=== PATIENT | female | born 1950 | race Caucasian/White ===

== ENCOUNTER → 2019-12-11 10:08 | Outpatient (BNVA) | payer MEDICARE, SELFPAY | PROVIDERS: Family Provider Physician Assistant Medical; PCP Physician Assistant Medical; Referring Provider Physician Assistant Medical; Visit Provider Podiatrist Foot & Ankle Surgery | DX: M21.611 Bunion of right foot (principal); M20.11 Hallux valgus (acquired), right foot; M77.31 Calcaneal spur, right foot | CPT/HCPCS: 73630 ==

== ENCOUNTER → 2023-02-07 10:17 | Outpatient (BNVA) | payer MEDICARE, SELFPAY | PROVIDERS: Family Provider Physician Assistant Medical; PCP Physician Assistant Medical; Referring Provider Nurse Practitioner Family; Visit Provider Orthopaedic Surgery | DX: M43.16 Spondylolisthesis, lumbar region (principal); M48.061 Spinal stenosis, lumbar region without neurogenic claudication; M41.9 Scoliosis, unspecified; Z98.890 Other specified postprocedural states | CPT/HCPCS: 72110; 99204 ==

== ENCOUNTER 2023-02-28 10:29 | Outpatient (CLI) | payer MEDICARE, SELFPAY ==
--- NOTE | 2023-02-28 11:00 | MR_ITS ---
WS: [id number] MRI LUMBAR SPINE NONCONTRAST HISTORY: low back pain with radiculopathy, hx of lumbar surgery COMPARISON: None available. TECHNIQUE: Sagittal and axial multisequence imaging is submitted. Increase in the lumbar lordosis. Mild LEFT curvature. L4 anterolisthesis by 3 mm. 2 mm retrolisthesis T12 and L1. Conus terminates normally at L1. T12-L1: Moderate annular disc bulging with mild encroachment upon the subarticular recesses. There is an additional RIGHT paracentral extruded disc component. Mild encroachment into the subarticular rec ess. L1-L2: Moderate annular disc bulging with ligamentum flavum and facet arthritis. Small RIGHT foramina l disc protrusion. Mild bilateral subarticular recess encroachment. L2-L3: Mild annular disc bulge with ligamentum flavum and facet arthritis. Mild bilateral subarticula r recess stenosis. L3-L4: Mild annular disc bulge with ligamentum flavum and facet arthritis. Mild effacement of ventral CSF and narrowing of the subarticular recesses. Mild central and subarticular recess stenosis. L4-L5: Marked annular disc bulging with severe ligamentum flavum and facet arthritis. Fluid in the fa cet joints. Effacement of CSF. Severe central and bilateral subarticular recess stenosis with moderat e bilateral foraminal stenosis. L5-S1: Mild facet arthritis. Very minimal encroachment upon the S1 nerve roots. Paravertebral soft tissues are normal. MR/MR lumbar spine wo con* [id number] IMPRESSION: 1. Severe central and bilateral subarticular recess stenosis at L4-5 with mode rate bilateral foraminal stenosis. Stenosis due to combination of L4 anterolist hesis with severe ligamentum flavum and facet arthritis with disc disease. 2. Bilateral subarticular recess stenosis at T12-L1. There is an additional RI GHT paracentral extruded disc at T12-L1 and extending caudad to the disc level. 3. Mild bilateral subarticular recess stenosis with a small RIGHT foraminal di sc protrusion at L1-2. 4. Mild bilateral subarticular recess encroachment at L2-3. 5. Mild central and bilateral subarticular recess stenosis at L3-4.
== END 2023-02-28 10:30 | disposition home or self-care (01) ==
PROVIDERS: PCP Nurse Practitioner Family; Visit Provider Orthopaedic Surgery
DX: M54.16 Radiculopathy, lumbar region (principal); M48.061 Spinal stenosis, lumbar region without neurogenic claudication; M54.50 Low back pain, unspecified; Z09 Encounter for follow-up examination after completed treatment for conditions other than malignant neoplasm; M43.16 Spondylolisthesis, lumbar region
CPT/HCPCS: 72148; 99214

== ENCOUNTER 2023-03-27 08:01 | Outpatient (CLI) | payer MEDICARE, SELFPAY ==
--- NOTE | 2023-03-27 08:45 | USCV_ITS ---
Leesa Suazo Age: 72 Gender: F : 1950 Exam Date: 03/27/2023 08:27 Ordering Phys: Kaleigh Trevino Technologist: Mila Gonzalez Exam Location[place] [facility] [place] Indication: abnormal EKG- pre op BP: 129 / 72 HR: 55 Rhythm: Sinus Technical Quality: Good MEASUREMENTS (Male / Female) Normal Values 2D ECHO LV Diastolic Diameter PLAX 4.5 cm 4.2 - 5.9 / 3.9 - 5.3 cm LV Systolic Diameter PLAX 2.3 cm IVS Diastolic Thickness 1.2 cm 0.6 - 1.0 / 0.6 - 0.9 cm IVS Systolic Thickness 1.3 cm LVPW Diastolic Thickness 0.9 cm 0.6 - 1.0 / 0.6 - 0.9 cm LVPW Systolic Thickness 2.3 cm LVOT Diameter 2.2 cm LV Ejection Fraction 2D Teich 79.9 % LV Ejection Fraction MOD 2C 64.7 % LV Ejection Fraction 2C AL 66.7 % LA Diameter 2.8 cm LA Width 2.9 cm LA Height 3.7 cm RA Width 3.8 cm RA Height 4.4 cm Aorta at Sinotubular Diameter 2.5 cm IVC Diameter 1.9 cm M-MODE Aortic Annulus Diameter 1.8 cm LA Ao Ratio MM 1.0 MV E Point Septal Separation 0.8 cm DOPPLER AV Peak Velocity 97.0 cm/s LVOT Peak Velocity 98.0 cm/s AV Area Cont Eq vti 3.8 cm squared AV Area Cont Eq pk 3.7 cm squared MV Peak Velocity 118.0 cm/s MV Area PHT 3.7 cm squared Mitral E to A Ratio 0.9 MV E' Velocity 92.0 cm/s TR Peak Velocity 101.0 cm/s TR Peak Gradient 4.1 mmHg Right Atrial Pressure 5.0 mmHg Pulmonary Artery Systolic Pressu 9.1 mmHg PV Peak Velocity 68.0 cm/s RV Acceleration Time 0.1 s RV Ejection Time 0.3 s RV AcT/ET 0.3 FINDINGS Left Ventricle Normal left ventricular size, systolic function and wall thickness, with no regional wall motion abnormalities. Left ventricular ejection fraction is estimated at 65 %. Right Ventricle Normal right ventricular size and systolic function. RVSP could not be calculated due to incomplete tricuspid regurgitation velocity profile. Right Atrium Normal right atrial size. Left Atrium Mildly increased left atrial size. Mitral Valve Structurally normal mitral valve. No mitral valve stenosis. Trace mitral valve regurgitation. Aortic Valve Aortic valve not well visualized. No aortic valve stenosis. No aortic valve regurgitation. Tricuspid Valve Structurally normal tricuspid valve. No tricuspid valve stenosis. Trace tricuspid valve regurgitation. Pulmonic Valve Pulmonic valve not well visualized. No pulmonary valve stenosis. No pulmonary valve regurgitation. Pericardium No pericardial effusion. Aorta Normal size aortic root and proximal ascending aorta. IVC Normal IVC dimension with >50% respiratory change of the inferior vena cava. CONCLUSIONS 1. Normal left ventricular size, systolic function and wall thickness, with no regional wall motion abnormalities. Left ventricular ejection fraction is estimated at 65 %. 2. No significant valvular abnormality. 3. No prior similar studies to compare. Rhonda Bush MD (Electronically Signed) Final Date: 02 April 2023 14:01 S
== END 2023-03-27 08:02 | disposition home or self-care (01) ==
PROVIDERS: PCP Nurse Practitioner Family; Visit Provider Nurse Practitioner Family
DX: R94.31 Abnormal electrocardiogram [ECG] [EKG] (principal)
CPT/HCPCS: 93306

== ENCOUNTER 2023-05-17 12:44 | Outpatient (CLI) | payer MEDICARE, SELFPAY ==
--- NOTE | 2023-05-17 13:11 | MM_ITS ---
WS: [id number] BILATERAL 3D TOMOSYNTHESIS DIGITAL SCREENING MAMMOGRAPHY WITH CAD CLINICAL INFORMATION: SCREENING HISTORY: Screening mammogram. No current complaints. COMPARISON: None. TECHNIQUE: Bilateral CC and MLO views. FINDINGS: Scattered fibroglandular densities bilaterally. No suspicious focal mass, asymmetry, calcifications, or architectural distortion. No evidence of malignancy. MM/[place] [id number] IMPRESSION: BI-RADS: 1-Negative FOLLOW UP: 1 Year Follow-up Recommend return to annual screening mammography.
== END 2023-05-17 12:45 | disposition home or self-care (01) ==
LOC: RAD 12:49 → MOBLMAM 13:10
PROVIDERS: PCP Nurse Practitioner Family; Visit Provider Nurse Practitioner Family
DX: Z12.31 Encounter for screening mammogram for malignant neoplasm of breast (principal)
CPT/HCPCS: 77063; 77067

== ENCOUNTER → 2023-06-15 14:20 | Outpatient (BNVA) | payer MEDICARE, SELFPAY | PROVIDERS: PCP Nurse Practitioner Family; Visit Provider Orthopaedic Surgery | DX: M43.16 Spondylolisthesis, lumbar region (principal); Z01.818 Encounter for other preprocedural examination | CPT/HCPCS: 36415; 72100; 80053; 81003; 85025; 99214 ==

== ENCOUNTER → 2023-07-04 10:47 | Outpatient (BNVA) | payer MEDICARE, SELFPAY | PROVIDERS: PCP Nurse Practitioner Family; Visit Provider Orthopaedic Surgery | DX: M43.16 Spondylolisthesis, lumbar region | CPT/HCPCS: 99213 ==

== ENCOUNTER 2023-07-07 13:50 | Inpatient (IN) | payer MEDICARE, SELFPAY ==
[2023-07-06 12:29] VITALS: BMI 32.2
[2023-07-07] VITALS (20 sets, daily range): BP systolic 100–182; BP diastolic 58–74; PULSE 58–87; RESP 14–22; TEMP 36.4–37.2; O2SAT 91–100
--- NOTE | 2023-07-07 | XR_ITS ---
WS: [id number] Exam: XR lumbar spine 2-3V* [id number] Date/Time of Exam: 07/07/2023 12:00 AM Reason For Exam: or pic, l4-5 fusion AP and lateral intraoperative images of the lower lumbar spine were obtained for intraoperative purpo ses.
[2023-07-07] MEDS: methadone 10 mg Tablet PO (06:41)
[2023-07-07] MEDS: sodium chloride 0.9% 1,000 ML 30 ML IV (06:45)
[2023-07-07] MEDS: scopolamine 1.5 Patch 1 PATCH TRANSDERMA (07:13)
[2023-07-07] MEDS: ondansetron 2 mg/ML SDV 2 mL 4 MG IVP ×2 (07:16→15:37)
[2023-07-07] MEDS: diphenhydrAMINE 50 mg/mL SDV 1mL 12.5 MG IVP (07:17)
[2023-07-07] MEDS: vancomycin 1,000 MG in sodium chloride 0.9% 250 ML 250 MG IV ×2 (09:00→17:19)
--- NOTE | 2023-07-07 09:00 | W.PM.OPSUD ---
Surgery/Procedure H&P Update DATE OF PROCEDURE: July 07, 2023 DATE H&P PERFORMED: 07/04/23 H&P UPDATE INFORMATION: I have reviewed H&P completed within last 30 days, I have examined patient prior to procedure and No changes to prior documentation PREOP DIAGNOSIS: Spondylolisthesis L4-5 PLANNED PROCEDURE: Operation Date: 07/07/23 09:55 Proposed Procedures p Posterior Lumbar Interbody Fusion PLIF L4-5(Not Applicable) - Chu Blackwell DO
--- NOTE | 2023-07-07 09:58 | ANES.PREANE2 ---
Pre-Anesthetic Assessment Height/Weight: Height 1.6 m Weight 82.554 kg Temp Pulse Resp BP Pulse Ox O2 Del Method 97.9 F 69 16 182/73 95 Room Air 07/07/23 06:18 07/07/23 06:18 07/07/23 06:41 07/07/23 06:18 07/07/23 06:41 07/07/23 06:18 Preop Diagnosis: Spondylolisthesis L4-5 Operation Date: 07/07/23 09:55 Proposed Procedures p Posterior Lumbar Interbody Fusion PLIF L4-5(Not Applicable) - Chu Blackwell DO Familial anesthetic complications: none Was Beta Shell taken within 24 hours: N/A Was Clonidine taken within 24 hours: N/A Last intake: Intake Last Liquid Date 07/06/23 Last Liquid Time 22:00 Last Solid Date 07/06/23 Last Solid Time 19:30 Social No alcohol and No tobacco Exam alert, oriented x 3, clear to auscultation bilaterally and regular rate & rhythm CV/HEM Hypertension Metabolic Hyperlipidemia, Morbid Obesity and Thyroid Disease [facility] [place]/el Lower Back Pain and Osteoarthritis/DJD Anesthetic Plan ASA status: 3 Anesthesia: General Other: A.line Medications/Allergies Home Medications Medication Instructions Recorded Confirmed Last Taken Type docusate sodium 100 mg capsule 100 mg PO DAILY 12/11/19 07/07/23 06/30/23 History (Colace) lactobacillus combination no.8 3 3,000 mmu cells PO DAILY 12/11/19 07/06/23 Unknown History billion cell capsule (Adult Probiotic) levothyroxine 75 mcg capsule 75 mcg PO DAILY 12/11/19 07/06/23 07/06/23 History lisinopril 20 1 tab PO DAILY 12/11/19 07/06/23 07/06/23 History mg-hydrochlorothiazide 12.5 mg tablet lovastatin 40 mg tablet 40 mg PO DAILY 12/11/19 07/07/23 07/05/23 History vit C,E,zinc,copper-aopeq7z 250 1 cap PO DAILY 12/11/19 07/06/23 07/03/23 History mg-lutein 5 mg-zeaxanthin 1 mg capsule (Ocuvite Adult 50 Plus) Allergies Allergy/AdvReac Type Severity Reaction Status Date / Time cephalexin [From Keflex] Allergy Mild ALGY-Rash Verified 07/07/23 06:17 ciprofloxacin Allergy Mild ALGY-Rash Verified 07/07/23 06:17 Current Medications Generic Name Dose Route Start Last Admin Trade Name Freq PRN Reason Stop Dose Admin Diphenhydramine HCl 12.5 mg 07/07/23 06:03 07/07/23 07:17 Diphenhydramine 50 Mg/Ml Sdv 1ml IVP 12.5 mg ONCE PRN Administration PONV Sodium Chloride 1,000 mls @ 30 mls/hr 07/07/23 06:15 07/07/23 06:45 Sodium Chloride 0.9% IV 07/08/23 06:14 30 mls/hr .Q24H MICKEY Administration Ondansetron HCl 4 mg 07/07/23 06:03 07/07/23 07:16 Ondansetron 2 Mg/Ml Sdv 2 Ml IVP 4 mg ONCE PRN Administration NAUSEA AND VOMITING PFSH Anesthesia Medical History Arthritis Borderline hyperlipidemia Dyspepsia Hypertension Hypokalemia Hypothyroid Family History Other Cancer Hyperlipidemia Hypertension Denies family history of Diabetes CAD (coronary artery disease) Clotting disorder Dementia Psychiatric illness Chronic kidney disease (CKD) Suicide Anesthesia complication Bleeding disorder Family history of premature coronary artery disease Lung disease Stroke Social History Smoking and tobacco status: never smoked Second hand smoke exposure: No Alcohol intake: never Substance/Drug Use: never Lives independently: Yes Household members: spouse Marital status: Data Anesthesia Blood Bank 07/07/23 06:39 Blood Type O Positive Rho(D) Type Positive Antibody Screen Negative Cardiac Studies: Echocardiogram 03/27/23
[2023-07-07] MEDS: lidocaine-epi 1% 20 mL INJ INJECTION (10:44)
[2023-07-07] MEDS: vancomycin 1,000 MG SDV 1000 MG XX (12:30)
[2023-07-07] MEDS: heparin, porcine 1,000 unit/mL INJ 10 mL 10000 UNIT IRRIGATION (12:35)
--- NOTE | 2023-07-07 13:03 | PM.OP ---
Operative Report Date of procedure: July 07, 2023 Pre-op diagnosis: L4-5 spondylolisthesis; lumbar stenosis with neurogenic claudication Post-op diagnosis: same Procedure done: 1. L4/5 Interbody fusion with posterolateral fusion 2. Instrumentation L4/5 3. Cage at L4/5 4. Laminectomy L4 5. use of autograft from same incision 6. allograft 7. Bone marrow aspirate from right iliac crest 8. Use of computer navigation stereotactic for spine Surgeon: Chu Blackwell DO Double Needle Operator Lockstitch: Atul Augilar Double Needle Operator Lockstitch: The paraprofessional education assistant, Atul Aguilar, PAC was needed for his expertise under the microscope. He was important and necessary throughout the procedure to complete in a safe and timely manner. He assisted with patient positioning prepping and draping tissue retraction suctioning of the operative field protection of the dural sac and tissue closure Estimated blood loss (mL): 350 Procedure: 1. L4/5 Interbody fusion with posterolateral fusion 2. Instrumentation L4/5 3. Cage at L4/5 4. Laminectomy L4 5. use of autograft from same incision 6. allograft 7. Bone marrow aspirate from right iliac crest 8. Use of computer navigation stereotactic for spine Patient is brought to the operative suite. After undergoing anesthesia, the patient had neuro monitoring attached. Patient was then placed in the prone position on the Carroll table. All areas of impingement were well-padded. Patient was then prepped and draped in the normal sterile fashion. Skin incision was then made over the L4/5 disc space. Subperiosteal dissection was made out to the transverse processes of L4 and L5. Once the exposure was complete attention was then brought to placing the pedicle screws. The [employer] bone marrow aspirate kit was used to aspirate bone marrow aspirate in the right iliac crest. This was done by using the sharp probe to open up the bone. Aspiration was performed and then the blunt probe was then used to dissect down to through the bone tunnel. An aspirating well drawn back a millimeter approximately 20 cc of bone marrow aspirate was used. And mixed with the allograft and autograft bone that will be used. She was brought to placing the fiducial for the computer navigation. The 2 pins were placed into the right iliac crest. These pins were removed at the end of the case. The fiducial was attached to the 2 pins. The C-arm was brought in and spun around the patient. Information from serum was then loaded into the computer in order to facilitate using computer navigation. The technique for placing the pedicle screws was to use a drill followed by the gearshift probe linked to computer navigation. Followed by the ball probe to feel the superior inferior medial lateral malave of the pedicles. Then placement of the screws linked to computer navigation. Was done at each pedicle. Screws were placed at L4 bilaterally and L5 bilaterally. Next attention was brought to performing the laminectomy ofL4. This was done using the high-speed bur Kerrisons and curettes. Once the lamina was removed and then attention was brought to performing a partial facetectomy on the contralateral side. This was done again using the high-speed bur curettes and Kerrisons. The ligamentum flavum was taken down bilaterally from L4 to L5. Attention was then brought to the facet on the ipsilateral side. The facet was taken down. The L5 nerve was decompressed as it passed around the L5 pedicle. The laminectomy was done for purposes of decompressing the nerve as well as placement of the cage. The L4 nerve was identified as it traversed through the L4/5 foramen. The thecal sac was identified and retracted. The L4/5 disc base was identified. Using a knife the disc base was opened. And then sequential lucio were placed. The first shaver was a 6 and the last shaver was a 9. Using a pituitary and down going curette the endplates were scraped and disc material was removed from the space. Once adequate decompression of the disc base was felt to be had. Osteoamp sponge was packed into the anterior aspect of the disc base. Then a size 10 cage from [employer] was placed after packing osteoamp into the cage. While placing the cage the thecal sac and L5 nerve was protected. C arm was used to ensure that the cages placed in the appropriate position. Attention was then brought to attaching the rods to the screws placed in the L4 bilaterally and L5 bilaterally. Caps were torqued into position. Locking the construct in place. Wound was copiously irrigated and then attention was brought to decorticating the facets and transverse processes laterally. Bone that was taken down from the lamina was used along with osteoamp fibers and sponges were packed into the lateral gutters along the facet joints. This was done bilaterally. Wound was then closed in a layered fashion starting with the thoracolumbar fascia. 0-vicryl was used the sub cutaneous tissue was closed with 2-0 vicryl and skin with 4-0 monocryl. Glue was then used to seal the skin and a steril dressing was applied. Patient was then placed in the supine position. The endotracheal tube was removed and patient was transferred to the PACU in stable condition.
--- NOTE | 2023-07-07 14:06 | ANE.PACU2 ---
Inpatient post-anesthesia follow up: Airway intact: Yes Vital signs: Temperature 97.9 F Pulse Rate 69 Respiratory Rate 16 Blood Pressure 182/73 Pulse Oximetry 95 Oxygen Delivery Me thod Room Air Oxygen Flow Rate 6 Fraction of Inspir ed Oxygen Hydration adequate: Yes Nausea and vomiting: No Pain level: 3 Mental status: Altered (sedate)
[2023-07-07] MEDS: HYDROcodone-acetaminophen 5-325 mg Tablet PO ×2 (15:07→21:05)
[2023-07-07] MEDS: lactated ringers 1,000 ML 90 ML IV (15:07)
--- NOTE | 2023-07-07 16:03 | PC.NURSE ---
Client sitting up in chair complained of nausea. Administered Zofran, refer to MAR. BP taken, found to be hypotensive. Moved client back to bed on her left side. BP taken again, WNL. Charge nurse notified. Client comfortable, no other complaints.
[2023-07-07] MEDS: docusate sodium 100 mg Capsule PO (17:17)
[2023-07-07 20:58] LABS: Glucose Point of Care 210 mg/dL (70-110)
[2023-07-07] MEDS: ketorolac 30 mg/mL INJ IVP (21:31)
[2023-07-08] MEDS: lactated ringers 1,000 ML 90 ML IV (02:26)
[2023-07-08 03:42] VITALS: BP 117/63; PULSE 59; RESP 16; TEMP 36.9; O2SAT 97
[2023-07-08] MEDS: vancomycin 1,000 MG in sodium chloride 0.9% 250 ML 250 MG IV (06:28)
[2023-07-08 06:36] VITALS: BP 136/71; PULSE 65; O2SAT 95
[2023-07-08] MEDS: HYDROcodone-acetaminophen 5-325 mg Tablet PO ×2 (06:37→10:33)
[2023-07-08 06:43] LABS: Glucose Point of Care 109 mg/dL (70-110)
[2023-07-08 07:41] VITALS: BP 111/66; PULSE 53; RESP 16; TEMP 36.7; O2SAT 91
[2023-07-08] MEDS: docusate sodium 100 mg Capsule PO (08:05)
[2023-07-08] MEDS: levothyroxine 75 mcg Tablet PO (08:06)
[2023-07-08] MEDS: atorvastatin 40 mg Tablet 20 MG PO (08:06)
[2023-07-08] MEDS: lisinopril 20 mg Tablet PO (08:06)
[2023-07-08] MEDS: hydroCHLOROthiazide 25 mg Tablet 12.5 MG PO (08:06)
--- NOTE | 2023-07-08 08:42 | P.PN_ITS ---
Subjective Subjective: POD 1 Patient resting comfortably. Reports back pain leg pain much improved. Denies shortness of breath chest pain or shortness of breath. Vitals/I&O/Wt Last Vital Signs Temp 98.1 F 07/08/23 07:41 Pulse 53 L 07/08/23 07:41 Resp 16 07/08/23 07:41 BP 111/66 07/08/23 07:41 Pulse Ox 91 07/08/23 07:41 O2 Del Method Room Air 07/08/23 07:41 O2 Flow Rate 1 07/08/23 08:00 07/07/23 07/08/23 07/08/23 22:59 06:59 14:59 Intake Total 590 / 2140 1000 / 3140 610 / 610 Output Total 400 / 1010 325 / 1335 Balance 190 / 1130 675 / 1805 610 / 610 Weight last 48 hrs Weight 182 lb Weight 182 lb Physical Exam Narrative: Patient presents alert and oriented x3 with a good general appearance normal mood and affect. Normal coordination normal stability. Mild tenderness around the incisional site with the incision appear to be clean and dry with Hemovac intact. No signs of erythema or drainage. No signs of infection. Patient denies any fevers or chills. 5/5 motor strength both lower extremities with negative straight leg raise bilaterally. Calves are supple no medial thigh tenderness. Pulses are 2+ at the dorsalis pedis and posterior tibial region. Good capillary refill throughout normal sensation light touch both lower extre mities. Urinary Catheter Management: Funez: Cath Placed During This Visit: yes Reason for Continuing Indwelling Catheter: Other Urinary Catheter Date of Insertion: 07/07/23 Urinary Catheter Time of Insertion: 11:00 Data 07/08/23 08:00 07/08/23 08:00 A&P Assessment and plan (1) Status post lumbar spinal fusion: We will discontinue Funez catheter. Discontinue Hemovac drain. Physical therapy to mobilize. Continue incentive spirometry for pulmonary toilet. I will discharge home later today if stable. Attestations Medical Necessity Statement*: Discharge home later today. Coding Level of Care Code Acute Code for Chg Fwd Diagnoses Status post lumbar spinal fusion Z98.1
[2023-07-08 08:54] LABS: Basophils % 0.2 %; Hematocrit 32.1 % (36-47); Mean Corpuscular HGB Conc 30.8 g/dL (30-55); Mean Corpuscular Hemoglobin 28.9 pg (27-33); Mean Corpuscular Volume 93.6 fl (85-98); Mean Platelet Volume 10.9 fL (7.4-10.4); Monocytes # 0.8 10^3/uL (0.2-0.9); Monocytes % 6.5 %; Neutrophils # 9.14 10^3/uL (1.8-7.7); Nucleated Red Blood Cells % 0 %; Platelet Count 236 10^3/cmm (157-399); Red Blood Count 3.43 10^6/uL (3.85-5.65); White Blood Count 12.03 10^3/uL (3.29-11.43)
[2023-07-08 09:12] LABS: Alanine Aminotransferase 23 U/L (0-33); Albumin Level 3.4 g/dL (3.5-5.2); Alkaline Phosphatase 68 U/L (35-105); Anion Gap 12.8 (5-19); Aspartate Amino Transferase 28 U/L (0-32); Blood Urea Nitrogen 20 mg/dL (8-23); Calcium 8.3 mg/dL (8.5-10.5); Carbon Dioxide 25 mmol/L (22-29); Chloride 107 mmol/L (98-107); Globulin 2.5 g/dL (1.3-4.6); Glucose 135 mg/dL (65-115); Osmolality Calculated 297 mOsm/kg (285-295); Potassium 3.8 mmol/L (3.5-5.1); Sodium 141 mmol/L (136-145); Total Bilirubin 0.3 mg/dL (0.15-1.2); Total Protein 5.9 g/dL (6.6-8.7)
[2023-07-08 10:33] VITALS: BP 111/66; PULSE 53; RESP 16; TEMP 36.7; O2SAT 91
--- NOTE | 2023-07-10 17:51 | PM.DCS ---
Discharge Providers Date of Admission: 07/07/23 13:50 Date of Discharge: July 08, 2023 Attending Provider at Admission: Chu Blackwell DO Attending Provider at Discharge: Chu Blackwell DO Primary Care Provider: Kaleigh Trevino Diagnoses at Discharge Discharge Diagnosis (1) Status post lumbar spinal fusion: Status: Acute Reason for Visit Reason for Visit: M54.9, M43.16 Physical Exam Urinary Catheter Management: Funez: Cath Placed During This Visit: yes, but has since been removed by the nurse Reason for Continuing Indwelling Catheter: Decision to DC Catheter Urinary Catheter Date of Insertion: 07/07/23 Urinary Catheter Time of Insertion: 11:00 Date Urinary Catheter Removed: 07/08/23 Time Urinary Catheter Discontinued: 09:51 Discharge Data Studies Completed and Pending Completed Studies During Hospitalization Category Date Time Status XR lumbar spine 2-3V* 71140 Routine Exams 07/07/23 Completed Laboratory Results WBC 12.03 10^3/uL (3.29-11.43) H 07/08/23 08:00 RBC 3.43 10^6/uL (3.85-5.65) L 07/08/23 08:00 Hgb 9.90 g/dL (11.27-16.99) L 07/08/23 08:00 Hct 32.1 % (36-47) L 07/08/23 08:00 MCV 93.6 fl (85-98) 07/08/23 08:00 MCH 28.9 pg (27-33) 07/08/23 08:00 MCHC 30.8 g/dL (30-55) 07/08/23 08:00 RDW 14.0 % (12.1-15.1) 07/08/23 08:00 Plt Count 236 10^3/cmm (157-399) 07/08/23 08:00 MPV 10.9 fL (7.4-10.4) H 07/08/23 08:00 Neut % (Auto) 76.0 % 07/08/23 08:00 Lymph % (Auto) 17.0 % 07/08/23 08:00 Preble % (Auto) 6.5 % 07/08/23 08:00 Eos % (Auto) 0.0 % 07/08/23 08:00 Baso % (Auto) 0.2 % 07/08/23 08:00 Neut # (Auto) 9.14 10^3/uL (1.8-7.7) H 07/08/23 08:00 Lymph # (Auto) 2.0 10^3/uL (0.8-4.8) 07/08/23 08:00 Preble # (Auto) 0.8 10^3/uL (0.2-0.9) 07/08/23 08:00 Eos # (Auto) 0.0 10^3/uL (0.0-0.8) 07/08/23 08:00 Baso # (Auto) 0.0 10^3/uL (0.0-0.1) 07/08/23 08:00 Nucleated RBC % (auto) 0 % 07/08/23 08:00 Nucleated RBCs # 0.0 /100WBC 07/08/23 08:00 Sodium 141 mmol/L (136-145) 07/08/23 08:00 Potassium 3.8 mmol/L (3.5-5.1) 07/08/23 08:00 Chloride 107 mmol/L (98-107) 07/08/23 08:00 Carbon Dioxide 25 mmol/L (22-29) 07/08/23 08:00 Anion Gap 12.8 (5-19) 07/08/23 08:00 BUN 20 mg/dL (8-23) 07/08/23 08:00 Creatinine 0.9 mg/dL (0.5-0.9) 07/08/23 08:00 GFR Calculation Not Reportable 07/08/23 08:00 Glucose 135 mg/dL (65-115) H 07/08/23 08:00 POC Glucose 109 mg/dL (70-110) 07/08/23 06:28 Calculated Osmolality 297 mOsm/kg (285-295) H 07/08/23 08:00 Calcium 8.3 mg/dL (8.5-10.5) L 07/08/23 08:00 Total Bilirubin 0.3 mg/dL (0.15-1.2) 07/08/23 08:00 AST 28 U/L (0-32) 07/08/23 08:00 ALT 23 U/L (0-33) 07/08/23 08:00 Alkaline Phosphatase 68 U/L (35-105) 07/08/23 08:00 Total Protein 5.9 g/dL (6.6-8.7) L 07/08/23 08:00 Albumin 3.4 g/dL (3.5-5.2) L 07/08/23 08:00 Globulin 2.5 g/dL (1.3-4.6) 07/08/23 08:00 Blood Type O Positive 07/07/23 06:39 Rho(D) Type Positive 07/07/23 06:39 Antibody Screen Negative 07/07/23 06:39 Vitals Last Vital Signs Temp 98.1 F 07/08/23 10:33 Pulse 53 L 07/08/23 10:33 Resp 16 07/08/23 10:33 BP 111/66 07/08/23 10:33 Pulse Ox 91 07/08/23 10:33 O2 Del Method Room Air 07/08/23 07:41 O2 Flow Rate 1 07/08/23 08:00 Discharge Plan Discharge Patient Disposition: Home Condition: Stable Prescriptions: New hydrocodone-acetaminophen 5-325 mg Tablet 1 tab PO Q4H PRN (Reason: Postoperative pain) Qty: 30 0RF Continued lisinopril-hydrochlorothiazide 20-12.5 mg tablet 1 tab PO DAILY levothyroxine 75 mcg capsule 75 mcg PO DAILY lovastatin 40 mg tablet 40 mg PO DAILY docusate sodium [Colace] 100 mg capsule 100 mg PO DAILY Adult Probiotic 3 billion cell capsule 3,000 mmu cells PO DAILY Ocuvite Adult 50 Plus 250-5-1 mg capsule 1 cap PO DAILY Discharge Orders: Discharge Order (Routine); Ordered 07/08/23 Ordered By: Atul Aguilar Referrals: Chu Blackwell DO [Physician] - 1 week Kaleigh Trevino FNP [Referring] - 7-10 days Discharge Diet: Advance as tolerated Discharge Activity: Limit activity as instructed Patient Instructions: Hydrocodone/Acetaminophen (By mouth), Lumbar Spinal Fusion (DC), Opioid Safety Activity Restrictions/Additional Instructions: Thank you for choosing [facility] for your care! The following is a list of instructions, from your provider, to follow upon your discharge to ensure you have the optimal recovery from your recent injury or surgery. Follow-up care is a wilks part of your treatment and safety. Be sure to make and go to all appointments and call your doctor if you are having problems. If you do not already have a follow-up appointment made, call Dr. Blackwell's] office in the next 1-3 days to make follow up appointment for [1-2] weeks at [phone]. It is also a good idea to know your test results and keep a list of the medicines you take. Medications will be prescribed for you at your provider's discretion. These medications are to be used as instructed; if they are taken more often that prescribed they will not be refilled early and in most cases will not be refilled at all. > When a refill is needed, you should contact [facility] [place] 2-3 business days before your prescription runs out. Medications will NOT be refilled by travel accommodations rater providers after hours! > Many pain medications contain Tylenol (Acetaminophen). Do not consume more than 4,000 mg of Tylenol per day in total with any combination of medications. > Pain medications can cause constipation. Please use an over the counter stool softener as directed, while taking pain medications. Consult your local pharmacist with questions or recommendations on stool softeners. If constipation persists, contact our office or your primary care provider. > While under our care, you are not to receive pain medications or other controlled substances from any other provider unless our office is notified and approves. Any attempts to do so will result in refusal to prescribe any further pain medications and possible dismissal from our practice. ? Walking is essential for the healing process after surgery. We would like you to slowly advance your walking. This should be done on relatively flat clear ground (inside or out) or can be done on a treadmill. Remember this goal does not have to happen all at once, slowly increase your distance and duration. This can be broken into more more than one walk per day as tolerated. Patients who walk as directed after surgery rarely require Physical Therapy. In the unlikely event this issue arises your provider will direct hospital staff to make the appropriate arrangements. ? No lifting over 5 pounds {a gallon of milk) or bending/twisting until further notice. Each of these activities places an unnecessary amount of stress onto the body and can impede the delicate healing process. > Instead of bending at the waist, keep your back straight and bend at the knees. > Instead of twisting your torso, keep your back straight and turn your entire body with your feet. ? You may sleep in any position which makes you comfortable. Many patients find comfort sleeping in a reclining chair. It is not abnormal to have difficulty sleeping for the first several weeks following your surgery. We recommend trying Benadry! or Tylenol PM as directed to help with your sleeping difficulties. Both medications are over the counter and available without prescription. ? NO SMOKING!!! Smoking dramatically increases the probability of developing postoperative wound infections. ? Common complaints after lumbar and/or thoracic spine surgery include, but are not limited to: numbness and/or tingling in the legs, pain around the incision and surrounding tissues, muscle spasms, or stiffness of the middle to low back. Contact our office if these symptoms persist or if an acute change occurs. ? No driving for the first 3-5days, and not while taking narcotics until seen at your follow-up appointment and cleared. There are no restrictions for riding on short trips, however if you take a longer trip, arrangements should be made to make regular stops to get out of the vehicle and stretch . ? Swelling is an unfortunate event that will take place with any surgery and is the primary source of your postoperative discomfort. While walking and regular approved activities helps control inflammation, there are additional steps you can take to minimize swelling. > Place ice over the surgical site and surrounding tissue for twenty minutes, followed by applying a low/medium heat (heating pad) for an additional twenty minutes every 1-2 hours as needed for painrelief. > You may use of over the counter anti-inflammatory medications (Ibuprofen, Motrin, Aleve, Advil, etc) as directed on the package label. These types of medicines will significantly reduce the amount of discomfort you experience after surgery from swelling. It should be noted that if you have and allergy to any of these medications, or a history of ulcers or kidney disease you should consult you primary care provider prior to starting these medications. Discharge Attestations Time Spent in Discharge Care*: less than 30 min Quality Metrics Clinical Quality Measures [ No reported AMI, CVA or VTE this stay] Coding Level of Care Code Acute Code for Chg Fwd Diagnoses Status post lumbar spinal fusion Z98.1
== END 2023-07-08 10:44 | disposition home or self-care (01) | DRG 455 ==
LOC: MEDSURG 13:52
PROVIDERS: Admitting Provider Orthopaedic Surgery; PCP Nurse Practitioner Family; Visit Provider Orthopaedic Surgery
PROC: 0SG00AJ Fusion of Lumbar Vertebral Joint with Interbody Fusion Device, Posterior Approach, Anterior Column, Open Approach (ICD-10-PCS; CPT 22612; principal; 2023-07-07 09:55)
DX: M43.16 Spondylolisthesis, lumbar region (principal); I10 Essential (primary) hypertension; E03.9 Hypothyroidism, unspecified; E78.5 Hyperlipidemia, unspecified; E66.01 Morbid (severe) obesity due to excess calories; Z68.32 Body mass index [BMI] 32.0-32.9, adult
CPT/HCPCS: 36415; 36416; 51702; 72100; 76000; 80053; 82962; 85025; 86850; 86900; 97110; 97116; 97162; 99213; C1713; J0131; J1100; J1200; J1644; J1885; J2371; J2405; J2704; J3010; J3370; J3475; J3490; J7030; J7050; J7120

== ENCOUNTER → 2023-07-20 09:19 | Outpatient (BNVA) | payer MEDICARE, SELFPAY | PROVIDERS: PCP Nurse Practitioner Family; Visit Provider Physician Assistant | DX: Z47.89 Encounter for other orthopedic aftercare (principal); Z98.1 Arthrodesis status | CPT/HCPCS: 72100; 99024 ==

== ENCOUNTER → 2023-08-17 10:08 | Outpatient (BNVA) | payer MEDICARE, SELFPAY | PROVIDERS: PCP Nurse Practitioner Family; Visit Provider Physician Assistant | DX: Z98.1 Arthrodesis status (principal); Z47.89 Encounter for other orthopedic aftercare | CPT/HCPCS: 72100; 99024 ==

== ENCOUNTER → 2023-10-03 09:53 | Outpatient (BNVA) | payer MEDICARE, SELFPAY | PROVIDERS: PCP Nurse Practitioner Family; Visit Provider Physician Assistant | DX: Z98.1 Arthrodesis status (principal); M43.16 Spondylolisthesis, lumbar region; Z47.89 Encounter for other orthopedic aftercare | CPT/HCPCS: 72100; 99213 ==

== ENCOUNTER → 2023-11-14 10:37 | Outpatient (BNVA) | payer MEDICARE, SELFPAY | PROVIDERS: PCP Nurse Practitioner Family; Visit Provider Orthopaedic Surgery | DX: Z98.1 Arthrodesis status (principal); Z47.89 Encounter for other orthopedic aftercare; M79.662 Pain in left lower leg | CPT/HCPCS: 72100; 99214 ==

== ENCOUNTER 2023-11-14 13:29 | Outpatient (CLI) | payer MEDICARE, SELFPAY ==
--- NOTE | 2023-11-14 15:15 | USCV_ITS ---
Lakeisha Leesa Age: 72 Gender: F : 1950 Exam Date: 11/14/2023 13:44 Ordering Phys: Chu Blackwell DO Technologist: BARON Exam Location: [facility] [place] Indication: LLE PAIN AND SWELLING HISTORY: Lower extremity swelling. Lower extremity pain. PROCEDURES: Venous duplex imaging was performed in only the left lower extremity. The following venous structures were evaluated: common femoral vein, profunda vein, proximal portion of the greater saphenous vein, superficial femoral vein, and the popliteal vein. In addition, the posterior tibial and peroneal trunk were evaluated. Serial compression, augmentation maneuvers, and spectral Doppler flow evaluation were performed. FINDINGS: No evidence of DVT seen in any vessel visualized at this time. CONCLUSIONS No evidence of left lower extremity DVT. Jeff Kemp MD (Electronically Signed) Final Date: 14 November 2023 16:18 S
== END 2023-11-14 13:30 | disposition home or self-care (01) ==
PROVIDERS: PCP Nurse Practitioner Family; Visit Provider Orthopaedic Surgery
DX: I82.402 Acute embolism and thrombosis of unspecified deep veins of left lower extremity (principal); M79.605 Pain in left leg; M79.604 Pain in right leg; M79.89 Other specified soft tissue disorders
CPT/HCPCS: 93971

== ENCOUNTER 2023-12-12 06:00 | Outpatient (RCR) | payer MEDICARE, SELFPAY | END 2023-12-21 23:59 | disposition home or self-care (01) | LOC: WPT 06:00 | PROVIDERS: Visit Provider Orthopaedic Surgery | DX: M43.10 Spondylolisthesis, site unspecified (principal) | CPT/HCPCS: 97110; 97112; 97161; 97530 ==

== ENCOUNTER 2023-12-22 06:00 | Outpatient (RCR) | payer MEDICARE, SELFPAY | END 2024-01-21 23:59 | disposition home or self-care (01) | LOC: WPT 06:00 | PROVIDERS: PCP Nurse Practitioner Family; Visit Provider Orthopaedic Surgery | DX: M43.10 Spondylolisthesis, site unspecified (principal) | CPT/HCPCS: 97110; 97112; 97530 ==

== ENCOUNTER → 2023-12-26 12:47 | Outpatient (BNVA) | payer MEDICARE, SELFPAY | PROVIDERS: PCP Nurse Practitioner Family; Visit Provider Orthopaedic Surgery | DX: Z98.1 Arthrodesis status (principal) | CPT/HCPCS: 72100; 99213 ==

== ENCOUNTER 2024-01-22 06:00 | Outpatient (RCR) | payer MEDICARE, SELFPAY | END 2024-02-20 23:59 | disposition home or self-care (01) | LOC: WPT 06:00 | PROVIDERS: PCP Nurse Practitioner Family; Visit Provider Orthopaedic Surgery | DX: M43.10 Spondylolisthesis, site unspecified (principal) | CPT/HCPCS: 97110; 97112; 97530 ==

== ENCOUNTER 2024-02-21 06:00 | Outpatient (RCR) | payer MEDICARE, SELFPAY | END 2024-03-22 23:59 | disposition home or self-care (01) | LOC: WPT 06:00 | PROVIDERS: PCP Nurse Practitioner Family; Visit Provider Orthopaedic Surgery | DX: M43.10 Spondylolisthesis, site unspecified (principal) | CPT/HCPCS: 97110; 97112; 97164; 97530 ==

== ENCOUNTER → 2024-03-06 13:48 | Outpatient (BNVA) | payer MEDICARE, SELFPAY | PROVIDERS: PCP Nurse Practitioner Family; Visit Provider Nurse Practitioner Family | DX: R60.9 Edema, unspecified (principal); D64.9 Anemia, unspecified; R60.0 Localized edema | CPT/HCPCS: 80053; 83880; 84439; 84443; 85025 ==

== ENCOUNTER 2024-03-19 12:28 | Outpatient (CLI) | payer MEDICARE, SELFPAY ==
--- NOTE | 2024-03-19 12:45 | USR_ITS ---
PROCEDURE INFORMATION: Exam: US Duplex Bilateral Lower Extremity Arteries Exam date and time: 03/19/2024 12:34 PM Age: 73 years old Clinical indication: Edema, localized; Lower extremity, bilateral; Additional info: D64.9 - anemia, unspecified TECHNIQUE: Imaging protocol: Real-time ultrasound scan of the arteries of the bilateral lower extremities with 2-D hutson scale, color Doppler flow and spectral waveform analysis. Images documented and saved. COMPARISON: No relevant prior studies available. FINDINGS: Right common femoral artery: No occlusion or significant stenosis. Normal waveform. Peak velocity 112 cm/s. Right superficial femoral artery: No occlusion or significant stenosis. Normal waveform. Peak velocity 99 cm/s. Right popliteal artery: No occlusion or significant stenosis. Normal waveform. Peak velocity 62 cm/s. Right calf/foot arteries: No occlusion or significant stenosis in the visualized arteries. Normal waveforms. Dorsalis pedis artery is patent. Left common femoral artery: No occlusion or significant stenosis. Normal waveform. Peak velocity 132 cm/s. Left superficial femoral artery: No occlusion or significant stenosis. Normal waveform. Peak velocity 124 cm/s. Left popliteal artery: No occlusion or significant stenosis. Normal waveform. Peak velocity 72 cm/s. Left calf/foot arteries: No occlusion or significant stenosis in the visualized arteries. Normal waveforms. Dorsalis pedis artery is patent. US/CV arterial duplex [facility] [id number] IMPRESSION: No stenosis or occlusion.
== END 2024-03-19 12:29 | disposition home or self-care (01) ==
LOC: RAD 12:28
PROVIDERS: PCP Nurse Practitioner Family; Visit Provider Nurse Practitioner Family
DX: D64.9 Anemia, unspecified (principal); R60.0 Localized edema
CPT/HCPCS: 93925

== ENCOUNTER 2024-03-23 06:00 | Outpatient (RCR) | payer MEDICARE, SELFPAY | END 2024-04-21 23:59 | disposition home or self-care (01) | LOC: WPT 06:00 | PROVIDERS: PCP Nurse Practitioner Family; Visit Provider Orthopaedic Surgery | DX: M43.10 Spondylolisthesis, site unspecified (principal) | CPT/HCPCS: 97110; 97112; 97530 ==

== ENCOUNTER → 2024-03-26 12:44 | Outpatient (BNVA) | payer MEDICARE, SELFPAY | PROVIDERS: PCP Nurse Practitioner Family; Visit Provider Orthopaedic Surgery | DX: Z98.1 Arthrodesis status (principal) | CPT/HCPCS: 72100; 99213 ==

== ENCOUNTER 2024-04-22 06:00 | Outpatient (RCR) | payer MEDICARE, SELFPAY | END 2024-05-22 23:59 | disposition home or self-care (01) | LOC: WPT 06:00 | PROVIDERS: PCP Nurse Practitioner Family; Visit Provider Orthopaedic Surgery | DX: M43.16 Spondylolisthesis, lumbar region (principal) | CPT/HCPCS: 97110; 97112; 97530 ==

== ENCOUNTER 2024-05-23 06:00 | Outpatient (RCR) | payer MEDICARE, SELFPAY | END 2024-06-22 18:00 | disposition home or self-care (01) | LOC: WPT 06:00 | PROVIDERS: PCP Nurse Practitioner Family; Visit Provider Nurse Practitioner Family | DX: M54.9 Dorsalgia, unspecified (principal) | CPT/HCPCS: 97110; 97112; 97162; 97530 ==

== ENCOUNTER → 2024-05-30 12:45 | Outpatient (BNVA) | payer MEDICARE, SELFPAY | PROVIDERS: PCP Nurse Practitioner Family; Visit Provider Orthopaedic Surgery | DX: Z98.1 Arthrodesis status (principal) | CPT/HCPCS: 99213 ==

== ENCOUNTER → 2024-06-05 15:22 | Outpatient (BNVA) | payer MEDICARE, SELFPAY | PROVIDERS: PCP Nurse Practitioner Family; Visit Provider Nurse Practitioner | DX: M17.12 Unilateral primary osteoarthritis, left knee (principal) | CPT/HCPCS: 20610; 73560; 73565; 99204; J1100; J2795; J3301 ==

== ENCOUNTER 2024-06-11 06:00 | Outpatient (RCR) | payer MEDICARE, SELFPAY | END 2024-06-22 18:00 | disposition home or self-care (01) | LOC: WPT 06:00 | PROVIDERS: Visit Provider Nurse Practitioner | DX: M17.12 Unilateral primary osteoarthritis, left knee (principal); R53.1 Weakness | CPT/HCPCS: 97110; 97161 ==

== ENCOUNTER 2024-06-23 06:00 | Outpatient (RCR) | payer MEDICARE, SELFPAY | END 2024-07-22 23:59 | disposition home or self-care (01) | LOC: WPT 06:00 | PROVIDERS: Visit Provider Nurse Practitioner | DX: M17.12 Unilateral primary osteoarthritis, left knee (principal); R53.1 Weakness | CPT/HCPCS: 97110; 97112; 97530 ==

== ENCOUNTER 2024-06-23 06:30 | Outpatient (RCR) | payer MEDICARE, SELFPAY | END 2024-07-22 23:59 | disposition home or self-care (01) | LOC: WPT 06:30 | PROVIDERS: PCP Nurse Practitioner Family; Visit Provider Nurse Practitioner Family | DX: M54.9 Dorsalgia, unspecified (principal) | CPT/HCPCS: 97110; 97530 ==

== ENCOUNTER 2024-07-23 06:00 | Outpatient (RCR) | payer MEDICARE, SELFPAY | END 2024-08-22 23:59 | disposition home or self-care (01) | LOC: WPT 06:00 | PROVIDERS: PCP Nurse Practitioner Family; Visit Provider Nurse Practitioner | DX: M17.12 Unilateral primary osteoarthritis, left knee (principal); R53.1 Weakness | CPT/HCPCS: 97110; 97112; 97530 ==

== ENCOUNTER → 2024-09-09 13:17 | Outpatient (BNVA) | payer MEDICARE, SELFPAY | PROVIDERS: PCP Nurse Practitioner Family; Visit Provider Nurse Practitioner | DX: M17.12 Unilateral primary osteoarthritis, left knee (principal) | CPT/HCPCS: 20610; 99213; J1100; J2795; J3301 ==

== ENCOUNTER → 2024-12-20 09:56 | Outpatient (BNVA) | payer MEDICARE, SELFPAY | PROVIDERS: PCP Nurse Practitioner Family; Visit Provider Nurse Practitioner | DX: M17.0 Bilateral primary osteoarthritis of knee (principal) | CPT/HCPCS: 20610; 99214; J1100; J2795; J3301; J7327 ==

== ENCOUNTER → 2025-03-21 10:37 | Outpatient (BNVA) | payer MEDICARE, SELFPAY | PROVIDERS: PCP Nurse Practitioner Family; Visit Provider Nurse Practitioner | DX: M17.12 Unilateral primary osteoarthritis, left knee (principal) | CPT/HCPCS: 20610; 99214; J1100; J2795; J3301; J9999 ==

== ENCOUNTER 2025-05-30 16:59 | Emergency (ER) | payer MEDICARE, SELFPAY ==
[2025-05-30 17:02] VITALS: BP 159/62; PULSE 54; RESP 16; TEMP 36.7; O2SAT 96; BMI 30.6
--- OUTSIDE RECORDS SUMMARY | 2025-05-30 17:06 | XMS_ITS | Encounter Summary ---
Author Organization [facility] Address [address] [place] [address] Care Team Providers Care Pricing Strategist Name Role Phone Hazel Martínez MD Primary Care Provider [phone] Encounter Details Date Type Department Care Team (Late st Contact Info) Description 07/30/2018 Ancillary Orders [facility] Agustín Salter Maries [address] [place] [id number] Cruz Chilel MD [address] [place] [address] Cyst of ovary, unspecified laterality Social History Tobacco Use Types Packs/Day Years Used Date Smoking Tobacco: Never Smokeless Tobacco: Never Alcohol Use Standard Drinks/Week Comments No 0 (1 standard drink = 0.6 oz pur e alcohol) Comments No Sex and Gender Information Value Date Recorded Sex Assigned at Not on file Legal Sex Female 1:37 PM SCHEDULER Gender Identity Not on file Sexual Orientation Not on file documented as of this encounter Plan of Treatment Not on file documented as of this encounter Results * US PELVIC TRANSVAGINAL (07/30/2018 3:46 PM CDT) Anatomical Region Laterality Modality Pelvis Ultrasound 07/30/2018 2:43 PM CDT Impressions 07/30/2018 4:36 PM CDT IMPRESSION Findings Comment Leiomyomata Adnexal mass A right adnexal mass was described on the prior exam of 04/23/18 and suspected to represent a teratoma. Teratoma, other neoplasm, or leiomyomata with degenerative change included in the differential diagnosis. Prominent endometrium Narrative 07/30/2018 4:36 PM T [place] [employer] Pat. Name: DENISE SUAZO Study Date: 07/30/2018 2:43pm Pat. NO: [id number] Referring MD: CRUZ CHILEL Site: [facility] [employer] Supervisor: Kitty Nuñez : 1950 Age: 67 INDICATION Ovarian cyst CODING Diagnosis N83.20: Unspecified ovarian cysts Procedures 40879: Pelvic non- OB, transvaginal HISTORY PET ADOPTION COUNSELOR History Postmenopausal. OB History 5. Para 2 METHOD Transabdominal and transvaginal ultrasound examination. View: Sagittal, axial and coronal images of the pelvis obtained UTERUS Visualized. Long 72 mm x ap 59 mm x tr 79 mm. Vol 175.5 cm Longitudinal uterus + cervix measures 12.2 cm Normal size and shape with regular contour. Position: anteverted Myometrium: Heterogenous Endometrium: Prominent. Endometrial thickness, total 24.4 mm Fibroid(s) Left subserous. Size 47 mm x 38 mm x 34 mm. Mean 39.7 mm. Vol 31,795 mm RIGHT OVARY Visualized, Enlarged and occupied by a lobular mass that appears avascular with color Doppler interrogation. The internal morphology is not well appreciated. Size 80 mm x 34 mm x 38 mm Cyst(s) Unilocular. Size 13.0 mm x 12.0 mm. Mean 12.5 mm Doppler PS 10.84 cm/s. ED 5.14 cm/s. RI 0.53. S / D 2.11 LEFT OVARY Not visualized CUL DE SAC Normal Procedure Note Nguyễn Alex II, MD - 07/30/2018 [facility] Pat. Name:Elisha SUAZO Date:07/30/2018 2:43pm Pat. NO: [id number] MD:CRUZ CHILEL [facility] :1950Age:67 INDICATION Ovarian cyst CODING Diagnosis N83.20: Unspecified ovarian cysts Procedures 38187: Pelvic non- OB, transvaginal HISTORY PET ADOPTION COUNSELOR History Postmenopausal. OB History 5. Para 2 METHOD Transabdominal and transvaginal ultrasound examination. View: Sagittal, axial and coronal images of the pelvis obtained UTERUS Visualized. Long 72 mm x ap 59 mm x tr 79 mm. Vol 175.5 cm Longitudinal uterus + cervix measures 12.2 cm Normal size and shape with regular contour. Position: anteverted Myometrium: Heterogenous Endometrium: Prominent. Endometrial thickness, total 24.4 mm Fibroid(s) Left subserous. Size 47 mm x 38 mm x 34 mm. Mean 39.7 mm. Vol 31,795 mm RIGHT OVARY Visualized, Enlarged and occupied by a lobular mass that appears avascular with color Doppler interrogation. The internal morphology is not well appreciated. Size 80 mm x 34 mm x 38 mm Cyst(s) Unilocular. Size 13.0 mm x 12.0 mm. Mean 12.5 mm Doppler PS 10.84 cm/s. ED 5.14 cm/s. RI 0.53. S / D 2.11 LEFT OVARY Not visualized CUL DE SAC Normal IMPRESSION Findings Comment Leiomyomata Adnexal mass A right adnexal mass was described on the prior exam of 04/23/18 and suspected to represent a teratoma. Teratoma, other neoplasm, or leiomyomata with degenerative change included in the differential diagnosis. Prominent endometrium Cruz Chilel MD US ORDERABLES Final Res ult documented in this encounter Visit Diagnoses Diagnosis Thickened endometrium Nonspecific (abnormal) findings on radiological and other examination of genitourinary organs Ovarian cyst, bilateral Other and unspecified ovarian cyst Cyst of ovary, unspecified laterality Cyst of ovary, unspecified laterality documented in this encounter Care Teams Pricing Strategist Relationship Specialty Start Date End Date Hazel Martínez MD [address] [id number] PCP - General Family Practice 11/28/13 documented as of this encounter
--- OUTSIDE RECORDS SUMMARY | 2025-05-30 17:06 | XMS_ITS | Clinical Summary ---
Author Organization [facility] [address] Address [address] [facility] [place] [address] Care Team Providers Care Spike Machine Heater Name Role Phone Shant Ryan MD Primary Care Provider [phone] Allergies Active Allergy Reactions Criticality Noted Date Comments Cephalexin Anaphylaxis High 03/09/2015 Ciprofloxacin Abdominal Pain Low 03/03/2015 Medications C,E,zinc,copper 11/brhbo5z/lut (OCUVITE ADULT 50 PLUS ORAL) Take by mouth 2 times daily. 018 Active gabapentin (NEURONTIN) 100 mg capsuleIndication s:Osteoarthritis of spine with radiculopathy, lumbar region Take 1 Capsule (100 mg) by mouth 3 times daily. 270 Capsule 024 Active Additional Information Patient not taking.Reported on 04/04/2025 omeprazole (PriLOSEC) 40 mg Capsule, Delayed Release(E.C.)Nisreen cations:Gastroeso phageal reflux disease with esophagitis without hemorrhage take 1 capsule by mouth daily 100 Capsule 3 024 Active Additional Information Patient not taking.Reported on 04/04/2025 furosemide (LASIX) 40 mg tabletIndications :Hypertension, unspecified type Take 1 Tablet (40 mg) by mouth daily. 90 Tablet 3 024 Active potassium chloride (KLOR-CON) 10 mEq Extended Release tabletIndications :Localized edema Take 1 Tablet (10 mEq) by mouth 2 times daily with meals. 180 Tablet 3 024 Active levothyroxine 75 mcg tabletIndications :Hypothyroidism, unspecified type TAKE 1 TABLET BY MOUTH DAILY IN THE MORNING 100 Tablet 2 025 Active lovastatin (MEVACOR) 40 mg tabletIndications :Hyperlipidemia, unspecified hyperlipidemia type,Hypertension , unspecified type Take 1 Tablet (40 mg) by mouth daily with supper. 100 Tablet 1 025 Active lisinopril-hydroC HLOROthiazide (ZESTORETIC) 20-12.5 mg tabletIndications :Hypertension, unspecified type Take 1 Tablet by mouth daily. 100 Tablet 1 025 Active metFORMIN (GLUCOPHAGE XR) 500 mg Extended Release 24 hour tabletIndications :Type 2 diabetes mellitus without complication, without long-term current use of insulin (CMS/[facility]) Take 1 Tablet (500 mg) by mouth daily with breakfast. 100 Tablet 025 Active fluticasone propionate (FLONASE) 50 mcg/spray [place], Suspension nasal inhalerIndication s:Vertigo,Fluid level behind tympanic membrane of both ears Administer 2 Sprays in each nostril daily. 16 Gram 11 025 Active tirzepatide (Mounjaro) 2.5 mg/0.5 mL Pen InjectorIndicatio ns:Type 2 diabetes mellitus without complication, without long-term current use of insulin ([facility]) Inject 0.5 mL (2.5 mg) by subcutaneous injection every 7 days. 2 mL 1 025 Active sulfamethoxazole- trimethoprim (BACTRIM DS) 800-160 mg tabletIndications :Kidney pain Take 1 Tablet by mouth 2 times daily for 5 days. 10 Tablet 025 2024 Active celecoxib (CeleBREX) 200 mg capsule Take 1 Capsule (200 mg) by mouth daily. 30 Capsule 2 025 2024 Additional Information Patient not taking.Reported on 04/04/2025 tirzepatide (Mounjaro) 2.5 mg/0.5 mL Pen InjectorIndicatio ns:Type 2 diabetes mellitus without complication, without long-term current use of insulin (CMS/[facility]) Inject 0.5 mL (2.5 mg) by subcutaneous injection every 7 days. 2 mL 1 025 2024 Discontinued sulfamethoxazole- trimethoprim (BACTRIM DS) 800-160 mg tabletIndications :Kidney pain Take 1 Tablet by mouth 2 times daily for 5 days. 10 Tablet 025 2024 Discontinued(R eorder) Active Problems Problem Noted Date Diagnosed Date Type 2 diabetes mellitus wit hout complication, without long-term current use of insulin 04/04/2025 Gastroesophageal reflux disease 04/27/2023 Vertigo 04/27/2023 Primary osteoarthritis of both knees 04/27/2023 Stress incontinence in female 11/09/2022 Chronic left-sided low back pain with left-sided sciatica 11/09/2022 Osteoarthritis of spine with radiculopathy, lumb ar region 06/14/2022 Chronic back pain greater than 3 months duration 03/03/2015 Hypokalemia 03/03/2015 Dyspepsia 03/03/2015 HTN (hypertension) 09/04/2012 Hyperlipidemia 09/04/2012 Hypothyroidism Arthritis Resolved Problems Problem Noted Date Diagnosed Date Resolved Date Abnormal EKG 02/17/2023 04/27/2023 Stage 3a chronic kidney disease 11/09/2022 02/17/2023 Thickened endometrium 01/25/20192018 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 08/03/20 18 04/19/2019 Ovarian cyst, bilateral 06/22/201803/24 Thickened endometrium 06/22/20182017 Acute pyelonephritis 03/03/2015 018 Encounters Date Type Department Care Team Description 05/28/2025 Orders Only [address] [place] [phone] Kaleigh Trevino FNP Kidney pain 05/25/2025 [facility] [address] [place] [address] [place] [phone] Kaleigh Trevino FNP XR HIP 2 OR 3 VIEWS LT 05/25/2025 Results Follow-Up [facility] [address] [place] [address] [place] [phone] Kaleigh Trevino FNP COMPREHENSIVE METABOLIC PANEL 05/22/2025 Telephone [place] [id number] [place] [address] Kaleigh Trevino FNP Medication Assistance 05/22/2025 Telephone [facility] [place] [address] Kaleigh Trevino FNP Referral 05/20/2025 10:53 AM CDT - 05/20/2025 11:59 PM CDT [facility] [place] [address] [facility] [address] [place] [address] Kaleigh Trevino FNP Discharge Disposition: Home or Self Care 05/20/2025 10:52 AM CDT - 05/20/2025 11:59 PM CDT Hospital Encounter [facility] [place] [address] [facility] [address] [place] [phone] Kaleigh Trevino FNP Discharge Disposition: Home or Self Care 05/19/2025 2:40 PM CDT Office Visit [facility] [address] [place] [address] [place] [address] Kaleigh Trevino FNP Left sciatic nerve pain (Primary Dx); Recurrent UTI 05/11/2025 Results Follow-Up [address] [place] [address] Kaleigh Trevino FNP URINE CULTURE, POC URINALYSIS DIPSTICK AUTOMATED 05/07/2025 External Device Data STL ABSTRACTION Provider, Abstract 05/06/2025 External Device Data STL ABSTRACTION Provider, Abstract 05/05/2025 2:00 PM CDT Office Visit [facility] [address] [place] [address] [place] [address] Kaleigh Trevino FNP Type 2 diabetes mellitus without complication, without long-term current use of insulin ([facility]) (Primary Dx); Kidney pain; Callus of foot 05/05/[address] [place] [address] Shant Ryan MD Patient Communication 05/01/2025 Results Follow-Up [facility] [address] [place] [address] [place] [phone] Kaleigh Trevino FNP XR SACRUM AND COCCYX, XR LUMBAR SPINE 2 OR 3 VW 04/23/2025 10:35 AM CDT - 04/23/2025 11:59 PM CDT Hospital Encounter [facility] [address] [facility] [address] [place] [address] Kaleigh Trevino FNP Discharge Disposition: Home or Self Care 04/23/2025 10:34 AM CDT - 04/23/2025 11:59 PM CDT Hospital Encounter [facility] [address] [phone] Kaleigh Trevino FNP Discharge Disposition: Home or Self Care 04/23/2025 8:40 AM CDT Office Visit [facility] [place] [address] [place] [address] [place] [phone] Kaleigh Trevino FNP Left sciatic nerve pain (Primary Dx); Type 2 diabetes mellitus without complication, without long-term current use of insulin ([facility]) 04/21/2025 Orders Only [facility] [place] [address] [place] [address] [place] [phone] Kaleigh Trevino FNP 04/17/2025 Results Follow-Up [facility] [address] [place] [address] [place] [phone] Kaleigh Trevino FNP SYSTEMIC AUTOIMMUNE PANEL 04/09/2025 External Device Data STL ABSTRACTION Provider, Abstract 04/08/2025 9:50 AM CDT Clinical Support [facility] [address] [place] [address] [place] [address] History of multiple miscarriages 04/08/2025 External Device Data STL ABSTRACTION Provider, Abstract 04/08/2025 External Device Data STL ABSTRACTION Provider, Abstract 04/07/2025 Medication Prior Auth Encounter [facility] [place] [address] Kaleigh Trevino FNP 04/04/2025 2:00 PM CDT Office Visit [facility] [place] [address] Kaleigh Trevino FNP Encounter for wellness examination (Primary Dx); Type 2 diabetes mellitus without complication, without long-term current use of insulin ([facility]); History of multiple miscarriages; Vertigo; Fluid level behind tympanic membrane of both ears 03/18/2025 External Device Data STL ABSTRACTION Provider, Abstract 03/13/2025 External Device Data STL ABSTRACTION Provider, Abstract 03/12/2025 External Device Data STL ABSTRACTION Provider, Abstract 03/11/2025 External Device Data STL ABSTRACTION Provider, Abstract 03/04/2025 Orders Only [address] [place] [address] Kaleigh Trevino FNP Type 2 diabetes mellitus without complication, without long-term current use of insulin ([facility]) (Primary Dx) 02/28/2025 11:40 AM CDT Office Visit [address] [phone] Nereyda Cruz NP Primary osteoarthritis of both knees (Primary Dx) 02/28/2025 11:10 AM CDT Ancillary Procedure [address] [phone] Satish Hodges MD Primary osteoarthritis of both knees from Last 3 Months Immunizations Immunization Administration Dates Next Due (PNEUMOVAX 23)(50 YRS UP) PN EUMOCOCCAL POLYSACCHARIDE (PPV23) 0.5 ML, IM 08/01/2018 (SHINGRIX)(50 YRS UP) ZOSTER VACCINE RECOMBINANT, 0.5 ML, IM 05/17/2022,03/14/2022 (SPIKEVAX) (12 YRS UP PRIMAR Y SERIES) COVID-19 VACCINE - MRNA-1273(PF) 100 MCG/0.5 ML IM SUSP 08/16/2024,08/27/2021,12/28/2020,11/27 INFLUENZA VACCINE HIGH DOSE QUADRIVALENT 65 YR UP PF IM 07/26/2024,08/03/2023,08/11/2022,07/23,07/26/2018 Influenza Seasonal Unspecifi ed Formulation IM 08/11/2022,08/04/2021,07/24/2020 Influenza Vaccine High Dose 65+ Yrs IM 9,07/26/2018 PNEUMOVAX (PPSV23) pneumococ dmitry polysaccharide 23-valent Vaccine 08/01/2018 PREVNAR (PCV13) pneumococcal 13-valent conjugate Vaccine 05/08/2017 Zoster Vaccine Live SQ 05/17/2022,03/14/2022, Family History Medical History Relation Name Comments Cancer Father Breast Cancer Maternal Aunt Ovarian Cancer Maternal Aunt Diabetes Maternal Grandmother Cancer Maternal Uncle 1 Cancer Maternal Uncle 2 Ovarian Cancer Paternal Aunt Relation Name Status Comments Father Maternal Aunt Maternal Grandmother Maternal Uncle 1 Maternal Uncle 2 Paternal Aunt Social History Tobacco Use Types Packs/Day Years Used Date Smoking Tobacco: Never Passive Smoke Exposure: Never Smokeless Tobacco: Never Tobacco Cessation:Counseling Given: No Alcohol Use Standard Drinks/Week Comments No 0 (1 standard drink = 0.6 oz pur e alcohol) Comments No Sex and Gender Information Value Date Recorded Sex Assigned at Not on file 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 Gender Identity Not on file Sexual Orientation Not on file Last Filed Vital Signs Vital Sign Reading Time Taken Comments Blood Pressure 118/58 05/19/2025 2:36 PM CDT Pulse 82 05/19/2025 2:36 PM CDT Temperature 37.1 C (98.8 F) 05/19/2025 2:36 PM CDT Respiratory Rate 20 05/19/2025 2:36 PM CDT Oxygen Saturation 98% 05/19/2025 2:36 PM CDT Inhaled Oxygen Concentration - - Weight 78.1 kg (172 lb 3.2 oz) 05/19/2025 2:36 P M CDT Height 160 cm (5' 3 ) 05/19/2025 2:36 PM CDT Body Mass Index 30.5 05/19/2025 2:36 PM CDT Plan of Treatment Health Maintenance Due Date Last Done Comments DIABETES ANNUAL FOOT EXAM 1967 DIABETES ANNUAL RETINAL EXAM 1967 FIT/FOBT Q 1 YEAR (AUTO ORDER) 1967 DTAP/TDAP/TD VACCINES (1 - Tdap) 1968 COLORECTAL CANCER SCREENING (AUTO ORDER) 1994 COLORECTAL SCREENING 1994 FIT/FOBT Q 1 year 1994 Flex Sig/CT Colonography Q 5 years 1994 LDL CHOLESTEROL ANNUAL 08/31/2024 3, 06/13/2022, 09/30/2021, Additional history exists COVID-19 Vaccine (2023-2 5 season) 2024 08/16/2024, 09/21/2023, 07/21/2022, Additional history exists RSV VACCINE (60+ or ) (1 - 1-dose 75+ series) 2024 INFLUENZA VACCINE (#1) 2025 4, 08/03/2023, 08/11/2022, Additional history exists DIABETES HBA1C Q 6 MONTHS 08/16/2025 02/14/2025 DIABETES MICROALBUMIN ANNUAL SCREEN 02/05/2026 02/05/2025 OSTEOPOROSIS SCREENING 02/22/2026 02/22/2021, 2020 Colorectal Cancer Screening 11/27/2026 FIT-DNA Q 3 years 11/27/2026 11/27/2023 FIT/ DNA Q 3 YEARS (AUTO ORDER) 11/27/2026 4, 11/26/2023 Colorectal Cancer Screening (AUTO ORDER) 11/26/2028 FLEX SIG/CT COLONOGRAPHY Q 5 YEARS (AUTO ORDER) 11/26/2028 11/26/2023, 11/26/2023 PNEUMOCOCCAL VACCINE 50+ YEARS Completed 1 , 08/01/2018, 05/08/2017 ZOSTER VACCINE Completed 05/17/2022, 04/23, 03/14/2022, Additional history exists Medicare Ad[place]age ([place]) Preventative Visit/Annual Wellness Visit Completed 04/04/2025, 04/18/2023 Medical Devices Implanted Type Area Tool Room Lathe Operator Device Identifier Shelf Expiration Date Model / Serial / Lot Hemostatic Surgiflo 8ml W/Thrombin 2994 - [id number] Implanted:Qty: 1 on 02/27/2019 by Cruz Springer MD Hemostatic N/A: Pelvis [employer] 04/21/2020 [id number] / / [id number] Procedures Procedure Name Priority Date/Time Associated Diagnosis Comments XR HIP 2 OR 3 VIEWS LT Routine 05/20/2025 11:17 AM CDT Left sciatic nerve pain COMPREHENSIVE METABOLIC PANEL Routine 05/20/2025 11:03 AM CDT Left sciatic nerve pain Recurrent UTI REFERENCE LAB PROCESSING FEE Routine 05/20/2025 10:58 AM CDT Bilateral sciatica POC URINALYSIS DIPSTICK AUTOMATED Routine 05/05/2025 2:37 PM CDT Kidney pain URINE CULTURE Routine 05/05/2025 2:12 PM CDT Kidney pain XR SACRUM AND COCCYX Stat 04/23/2025 11:06 AM CDT Left sciatic nerve pain XR LUMBAR SPINE 2 OR 3 VW Stat 04/23/2025 11:06 AM CDT Left sciatic nerve pain SYSTEMIC AUTOIMMUNE PANEL Routine 04/08/2025 10:07 AM CDT History of multiple miscarriages XR KNEE 4+ VW BILAT Routine 02/28/2025 1 1:15 AM CDT Primary osteoarthritis of both knees HEMOGLOBIN A1C Routine 02/14/2025 1:36 PM CDT Elevated random blood glucose level MICROALBUMIN/CREATINI NE RATIO, RANDOM UR Routine 02/05/2025 3:27 PM CDT Hypertension, unspecified type COLON CANCER SCREEN, STOOL DNA Routine 11/27/2023 4:00 AM TRUCK OPERATOR Encounter for colorectal cancer screening LIPID PANEL Routine 08/31/2023 9:36 AM TRUCK OPERATOR Hypertension, unspecified type XR DEXA BONE DENSITY AXIAL 1 OR MORE SITES Routine 02/22/2021 12:15 PM CDT Asymptomatic menopausal state from Last 3 Months or Most Recently Relevant to Health Maintenance Results * XR HIP 2 OR 3 VIEWS LT (05/20/2025 11:17 AM CDT) Anatomical Region Laterality Modality Lower Extremity Left Computed Radiogr aphy 05/20/2025 11:1 7 AM CDT Impressions 05/22/2025 9:58 AM CDT IMPRESSION: No acute osseous or specific articular abnormality. Narrative 05/22/2025 9:58 AM CDT Exam: XR HIP 2 OR 3 VIEWS LT Date/Time of Exam: 05/20/2025 11:17 AM Reason For Exam: See Diagnosis. Diagnosis: Left sciatic nerve pain. Comparison: 03/21/2024. Findings: There is partial visualization of postsurgical change involving the lumbar spine with grossly intact-appearing hardware. There is no evidence of an acute fracture or dislocation. The hip joint appears well-maintained. The soft tissues appear grossly unremarkable. Procedure Note Jamar Rodarte N, DO - 05/22/2025 Exam: XR HIP 2 OR 3 VIEWS LT Date/Time of Exam: 05/20/2025 11:17 AM Reason For Exam: See Diagnosis. Diagnosis: Left sciatic nerve pain. Comparison: 03/21/2024. Findings: There is partial visualization of postsurgical change involving the lumbar spine with grossly intact-appearing hardware. There is no evidence of an acute fracture or dislocation. The hip joint appears well-maintained. The soft tissues appear grossly unremarkable. IMPRESSION: No acute osseous or specific articular abnormality. Kaleigh Trevino [facility] DIAGNOSTIC IMAGING ORDERABLES Fi nal Result * (ABNORMAL) COMPREHENSIVE METABOLIC PANEL (05/20/2025 11:03 AM CDT) GLUCOSE 104(H) 65 - 99 mg/dL [facility] Comment: Fasting reference interval For someone without known diabetes, a glucose value between 100 and 125 mg/dL is consistent with prediabetes and should be confirmed with a follow-up test. BUN 21 7 - 25 mg/dL [facility] CREATININE 0.94 0.60 - 1.00 mg/dL [facility] GFR 63 > OR = 60 mL/min/1. 73m2 [facility] BUN/CREAT RATIO SEE NOTE: 6 - 22 (calc) [facility] Comment: Not Reported: BUN and Creatinine are within reference range. SODIUM 143 135 - 146 mmol/L [facility] POTASSIUM 3.7 3.5 - 5.3 mmol/L [facility] CHLORIDE 102 98 - 110 mmol/L [facility] CO2 30 20 - 32 mmol/L [facility] CALCIUM 9.4 8.6 - 10.4 mg/dL [facility] TOTAL PROTEIN 6.6 6.1 - 8.1 g/dL [facility] ALBUMIN 4.0 3.6 - 5.1 g/dL [facility] GLOBULIN 2.6 1.9 - 3.7 g/dL (calc) [facility] ALBUMIN/GLOBULIN RATIO 1.5 1.0 - 2.5 (calc) [facility] BILIRUBIN TOTAL 0.5 0.2 - 1.2 mg/dL [facility] ALKALINE PHOSPHATASE 51 37 - 153 U/L [facility] AST 11 10 - 35 U/L [facility] ALT 9 6 - 29 U/L [facility] Comment: Test Performed at: [address] [place] [address] Justin Griffin MD Blood 05/20/2025 11:0 3 AM CDT 05/21/2025 3:03 AM CDT Kaleigh Trevino [facility] CHEMISTRY ORDERABLES Final Resul t [facility] [phone] [facility] [address] * REFERENCE LAB PROCESSING FEE (05/20/2025 10:58 AM CDT) REFERENCE LAB SENDOUT Sent to Ref Lab 05/20/2025 1:00 PM CDT [facility] Other, specify BLOOD SPECIMEN / Unknown Collection / Unknown 05/20/2025 10:58 AM CDT 05/20/2025 11:24 AM CDT Kaleigh Trevino [facility] CHEMISTRY ORDERABLES Final Resul t Performing Organization Address City/[facility]/ZIP Co de Phone Number [facility] CLIA # [id number] [address] [place] [address] * (ABNORMAL) POC URINALYSIS DIPSTICK AUTOMATED (05/05/2025 2:37 PM CDT) COLOR UA POC Yellow Pale to Dark Yellow [facility] CLARITY UA POC Clear Clear, Other [facility] [place] GLUCOSE UA POC Negative Negative, Normal [facility] BILIRUBIN UA POC Negative Negative [facility] [place] KETONES UA POC Negative Negative [facility] [facility] SPECIFIC GRAVITY UA POC 1.015 1.000 - 1.030 [facility] [place] BLOOD UA POC Trace(A) Negative [facility] [place] PH UA POC 7.0 5.0 - 8.0 [facility] [place] PROTEIN UA POC 2+(A) Negative [facility] UROBILINOGEN UA POC 0.2 <2.0 mg/dL [facility] NITRITE UA POC Negative Negative [facility] LEUKOCYTE ESTERASE UA POC 3+(A) Negative [facility] [place] [facility] KIT LOT NUMBER POC [id number] [facility] KIT EXP DATE POC 08-22-2025 [facility] [place] Urine 05/05/2025 2:37 PM CDT Kaleigh JALLOH POINT OF CARE TESTING Final Resu lt [facility] [place] [facility] CLIA# [id number] [address] [facility] [place] [address] * (ABNORMAL) URINE CULTURE (05/05/2025 2:12 PM CDT) URINE CULTURE SEE NOTE(A) [facility] Comment: CULTURE, URINE, ROUTINE Micro Number: [id number] Test Status: Final Specimen Source: Urine, clean catch Specimen Quality: Adequate Result: 50,000-100,000 CFU/mL of Escherichia coli E.coli INT KAMLESH AMOX/CLAVULANATE S 4 AMP/SULBACTAM I 16 CEFAZOLIN I 4 CEFEPIME S <=0.12 CEFTAZIDIME S <=0.5 CEFTRIAXONE S <=0.25 CIPROFLOXACIN S <=0.06 GENTAMICIN S <=1 IMIPENEM S <=0.25 LEVOFLOXACIN S <=0.12 MEROPENEM S <=0.25 NITROFURANTOIN S <=16 PIP/TAZOBACTAM S <=4 TRIMETHOPRIM/SULFA S <=20 S = Susceptible I = Intermediate R = Resistant NS = Not susceptible SDD = Susceptible Dose Dependent * = Not Tested NR = Not Reported NN = See Therapy Comments Test Performed at: [facility] [address] [place] [address] Justin Griffin MD Urine URINE SPECIMEN OBTAINED BY CLEAN CATCH PROCEDURE / Unknown 05/05/2025 2:12 PM CDT 05/06/2025 7:58 AM CDT Kaleigh JALLOH MICROBIOLOGY - GENERAL ORDERABLE S Final Result [facility] [phone] [facility] [address] [place] [address] * XR SACRUM AND COCCYX (04/23/2025 11:06 AM CDT) Anatomical Region Laterality Modality Pelvis Computed Radiogr aphy 04/23/2025 11:0 6 AM CDT Impressions 04/23/2025 11:27 AM CDT Impression: No acute fracture. Narrative 04/23/2025 11:27 AM CDT Exam: XR SACRUM AND COCCYX Date/Time of Exam: 04/23/2025 11:06 AM Reason For Exam: See Diagnosis Diagnosis: Left sciatic nerve pain AP and lateral views of the sacrum and coccyx are submitted. No acute fracture, dislocation or other bony abnormality is seen. Procedure Note Ja Graham MD - 04/23/2025 Exam: XR SACRUM AND COCCYX Date/Time of Exam: 04/23/2025 11:06 AM Reason For Exam: See Diagnosis Diagnosis: Left sciatic nerve pain AP and lateral views of the sacrum and coccyx are submitted. No acute fracture, dislocation or other bony abnormality is seen. Impression: No acute fracture. Kaleigh Trevino EMPLOYMENT OFFICER DIAGNOSTIC IMAGING ORDERABLES Fi nal Result * XR LUMBAR SPINE 2 OR 3 VW (04/23/2025 11:06 AM CDT) Anatomical Region Laterality Modality Spine Computed Radiogr aphy 04/23/2025 11:0 6 AM CDT Impressions 04/23/2025 11:26 AM CDT IMPRESSION: 1. L4-5 are surgically fused. 2. Severe degenerative changes are seen in the lumbar spine. Narrative 04/23/2025 11:26 AM CDT Exam: XR LUMBAR SPINE 2 OR 3 VW Date/Time of Exam: 04/23/2025 11:06 AM Reason For Exam: See Diagnosis Diagnosis: Left sciatic nerve pain AP and lateral views of the lumbar spine are submitted. Bilateral internal fixation devices span L4-5 posteriorly. There is no evidence of any loosening or breakage of the fixation devices. Degenerative changes with osteophyte formation along the endplate margins are seen at all levels. Disc space narrowing and vacuum disc phenomenon are present at some levels and are consistent with severe degenerative change. Hypertrophy of the articular facets is seen at several levels in the mid and lower lumbar spine. Procedure Note Ja Graham MD - 04/23/2025 Exam: XR LUMBAR SPINE 2 OR 3 VW Date/Time of Exam: 04/23/2025 11:06 AM Reason For Exam: See Diagnosis Diagnosis: Left sciatic nerve pain AP and lateral views of the lumbar spine are submitted. Bilateral internal fixation devices span L4-5 posteriorly. There is no evidence of any loosening or breakage of the fixation devices. Degenerative changes with osteophyte formation along the endplate margins are seen at all levels. Disc space narrowing and vacuum disc phenomenon are present at some levels and are consistent with severe degenerative change. Hypertrophy of the articular facets is seen at several levels in the mid and lower lumbar spine. IMPRESSION: 1. L4-5 are surgically fused. 2. Severe degenerative changes are seen in the lumbar spine. Kaleigh Trevino [facility] DIAGNOSTIC IMAGING ORDERABLES Fi nal Result * (ABNORMAL) SYSTEMIC AUTOIMMUNE PANEL (04/08/2025 10:07 AM CDT) JONES SCREEN NEGATIVE NEGATIVE [facility], Comment: JONES IFA is a first line screen for detecting the presence of up to approximately 150 autoantibodies in various autoimmune diseases. A negative JONES IFA result suggests an JONES-associated autoimmune disease is not present at this time, but is not definitive. If there is high clinical suspicion for Sjogren's syndrome, testing for anti-SS-A/Ro antibody should be considered. Anti-Moraima-1 antibody should be considered for clinically suspected inflammatory myopathies. AC-0: Negative International Consensus on JONES Patterns https://doi.org/10.1515/mxqa-2561-4069 For additional information, please refer to http://education.[facility].Scannx/faq/TAP306 (This link is being provided for informational/educational purposes only.) DNA AB (DS) CRITHIDIA,IFA NEGATIVE NEGATIVE [facility], CHROMATIN (NUCLEOSOMAL) ANTIBODY <1.0 NEG <1.0 NEGATIVE AI [facility], SIMON IGG AB <1.0 NEG <1.0 NEGATIVE AI [facility], MARK ANTHONY ABS, SM/CONCRETE PRODUCTS DISPATCHER AB <1.0 NEG <1.0 NEGATIVE AI [facility], CONCRETE PRODUCTS DISPATCHER AB <1.0 NEG <1.0 NEGATIVE AI [facility], SJOGRENS ABS (SSA) <1.0 NEG <1.0 NEGATIVE AI [facility], SJOGRENS ABS (SSB) <1.0 NEG <1.0 NEGATIVE [facility], SCLERODERMA AB SCL 70 <1.0 NEG <1.0 NEGATIVE [facility], JO1 AB <1.0 NEG <1.0 NEGATIVE AI [facility], CENTROMERE AB <1.0 NEG <1.0 NEGATIVE AI [facility], COMPLEMENT C3 194(H) 83 - 193 mg/dL [facility], COMPLEMENT C4 44 15 - 57 mg/dL [facility], CARDIOLIPIN IGA AB <2.0 APL-U/mL [facility], Comment: Value Interpretation ----- <20.0 Antibody not detected > or = 20.0 Antibody detected CARDIOLIPIN IGG AB <2.0 GPL-U/mL [facility], Comment: Value Interpretation ----- <20.0 Antibody not detected > or = 20.0 Antibody detected CARDIOLIPIN IGM AB <2.0 MPL-U/mL [facility], Comment: Value Interpretation ----- <20.0 Antibody not detected > or = 20.0 Antibody detected B2 GLYCOPROTEIN I IGA <2.0 U/mL [facility], Comment: Value Interpretation ----- <20.0 Antibody not detected > or = 20.0 Antibody detected B2 GLYCOPROTEIN I IGG <2.0 U/mL [facility], Comment: Value Interpretation ----- <20.0 Antibody not detected > or = 20.0 Antibody detected B2 GLYCOPROTEIN I IGM <2.0 U/mL [facility], Comment: The antiphospholipid antibody syndrome (APS) is a clinical-pathologic correlation that includes a clinical event (e.g. arterial or venous thrombosis, morbidity) and persistent positive antiphospholipid antibodies (IgM, IgG Cardiolipin or b2GPI antibodies greater than the 99th percentile; or a lupus anticoagulant). International consensus guidelines for APS suggest waiting at least 12 weeks before retesting to confirm antibody persistence. The Systemic Lupus International Collaborating [facility] immunological classification criteria for systemic lupus erythematosus (SLE) include testing for isotype IgA, which has yet to be incorporated into APS criteria. Low level antiphospholipid antibodies may sometimes be detected in the setting of infection, drug therapy or aging. For additional information, please refer to http://education.[employer].Scannx/faq/FYX928 (This link is being provided for informational/educational purposes only.) Value Interpretation ----- <20.0 Antibody not detected > or = 20.0 Antibody detected RHEUMATOID FACTOR (IGA) <5 U [facility]/ [facility], Comment: Reference Range: <=6 NEGATIVE >6 POSITIVE RHEUMATOID FACTOR IGG <5 U [facility]/ [facility], Comment: Reference Range: <=6 NEGATIVE >6 POSITIVE RHEUMATOID FACTOR (IGM) <5 U [facility]/ [facility], Comment: Reference Range: <=6 NEGATIVE >6 POSITIVE CYCLIC CITRULLINATED PEPTIDE AB IGG <16 Units [facility]/ [facility], Comment: Reference Range: NEGATIVE: <20 WEAK POSITIVE: 20-39 MODERATE POSITIVE: 40-59 STRONG POSITIVE >59 MUTATED CITRULLINATED VIMENTIN AB <20 <20 U/mL [facility]/ [facility], Comment: Anti-mutated citrullinated vimentin antibody may be used as a second-line marker of rheumatoid arthritis, in addition to rheumatoid factor and anti-cyclic citrullinated peptide (CCP). THYROID PEROXIDASE AB 1 <9 IU/mL [facility]/ [facility], Comment: Test Performed at: [facility], [address] [place] [phone] Leslie Ac MD,PhD,BINDU Blood 04/08/2025 10:0 7 AM CDT 04/09/2025 5:48 AM CDT us Kaleigh Trevino EMPLOYMENT OFFICER CHEMISTRY ORDERABLES Final Resul t [facility] [phone] [facility], [address] [place] [address] * XR KNEE 4+ VW BILAT (02/28/2025 11:15 AM CDT) Anatomical Region Laterality Modality Lower Extremity Computed Radiogr aphy Narrative 03/10/2025 10:16 AM CDT 4 views of the affected bilat knee(s) were obtained at our institution. I have personally read the xrays and they show: - Joint space narrowing identified; severe - Periarticular osteophyte formation - Subchondral sclerosis us Satish Hodges MD DIAGNOSTIC IMAGING ORDE SCOOBY Final Result * (ABNORMAL) HEMOGLOBIN A1C (02/14/2025 1:36 PM CDT) HEMOGLOBIN A1C 6.5(H) <5.7 % [facility] Comment: For someone without known diabetes, a hemoglobin A1c value of 6.5% or greater indicates that they may have diabetes and this should be confirmed with a follow-up test. For someone with known diabetes, a value <7% indicates that their diabetes is well controlled and a value greater than or equal to 7% indicates suboptimal control. A1c targets should be individualized based on duration of diabetes, age, comorbid conditions, and other considerations. Currently, no consensus exists regarding use of hemoglobin A1c for diagnosis of diabetes for children. ESTIMATED AVERAGE GLUCOSE (MG/DL) 140 mg/dL [facility] ESTIMATED AVERAGE GLUCOSE (MMOL/L) 7.7 mmol/L [facility] Comment: Test Performed at: [employer] [address] [place] [address] Justin Griffin MD Blood 02/14/2025 1:36 PM CDT 02/15/2025 2:29 AM CDT Kaleigh SUAREZP CHEMISTRY ORDERABLES Final Resul t [facility] [phone] [address] [address] [place] [address] * MICROALBUMIN/CREATININE RATIO, RANDOM UR (02/05/2025 3:27 PM CDT) CREATININE, URINE 259 20 - 275 mg/dL [facility] ALBUMIN, URINE 1.1 See Note: mg/dL [facility] Comment: Reference Range: Reference Range Not established ALB/CREAT RATIO, URINE 4 <30 mg/g creat [facility] Comment: The ADA defines abnormalities in albumin excretion as follows: Albuminuria Category Result (mg/g creatinine) Normal to Mildly increased <30 Moderately increased 30-299 Severely increased > OR = 300 The ADA recommends that at least two of three specimens collected within a 3-6 month period be abnormal before considering a patient to be within a diagnostic category. Test Performed at: [facility] [address] [address] Justin Griffin MD Urine URINE SPECIMEN OBTAINED BY CLEAN CATCH PROCEDURE / Unknown 02/05/2025 3:27 PM CDT 02/07/2025 6:33 AM CDT Kaleigh Trevino EMPLOYMENT OFFICER URINE ORDERABLES Final Result [facility] [phone] [facility] [address] [place] [address] * COLON CANCER SCREEN, STOOL DNA (11/27/2023 4:00 AM TRUCK OPERATOR) COLOGUARD RESULT Negative Negative [facility] Comment: NEGATIVE TEST RESULT. A negative Cologuard result indicates a low likelihood that a colorectal cancer (CRC) or advanced adenoma (adenomatous polyps with more advanced pre-malignant features) is present. The chance that a person with a negative Cologuard test has a colorectal cancer is less than 1 in 1500 (negative predictive value >99.9%) or has an advanced adenoma is less than 5.3% (negative predictive value 94.7%). These data are based on a prospective cross-sectional study of 10,000 individuals at average risk for colorectal cancer who were screened with both Cologuard and colonoscopy. (Elma Parkinson et al, N Engl J Med 2014;370(14):0619-4252) The normal value (reference range) for this assay is negative. COLOGUARD RE-SCREENING RECOMMENDATION: Periodic colorectal cancer screening is an important part of preventive healthcare for asymptomatic individuals at average risk for colorectal cancer. Following a negative Cologuard result, the [place] Cancer Society and U.S. Multi-Society Task Force screening guidelines recommend a Cologuard re-screening interval of 3 years. References: [place] [employer] Society Guideline for Colorectal Cancer Screening: https://www.cancer.org/cancer/hixau-rgfhnp-vuoykt/exhuqerwu-dphwwgrnd-mmcvweb/ac s-rec ommendations.html.; Pee ESCOTO, Coleen DALTON, Zoe LEMUS, Colorectal Cancer Screening: Recommendations for Physicians and Patients from the U.S. Multi-Society Task Force on Colorectal Cancer Screening , Am J Gastroenterology 2017; 112:5644-8254. TEST DESCRIPTION: Composite algorithmic analysis of stool DNA-biomarkers with hemoglobin immunoassay. Quantitative values of individual biomarkers are not reportable and are not associated with individual biomarker result reference ranges. Cologuard is intended for colorectal cancer screening of adults of either sex, 45 years or older, who are at average-risk for colorectal cancer (CRC). Cologuard has been approved for use by the U.S. FDA. The performance of Cologuard was established in a cross sectional study of average-risk adults aged 50-84. Cologuard performance in patients ages 45 to 49 years was estimated by sub-group analysis of near-age groups. Colonoscopies performed for a positive result may find as the most clinically significant lesion: colorectal cancer [4.0%], advanced adenoma (including sessile serrated polyps greater than or equal to 1cm diameter) [20%] or non- advanced adenoma [31%]; or no colorectal neoplasia [45%]. These estimates are derived from a prospective cross-sectional screening study of 10,000 individuals at average risk for colorectal cancer who were screened with both Cologuard and colonoscopy. (Elma Parkinson et al, N Engl J Med 2014;370(14):3937-5604.) Cologuard may produce a false negative or false positive result (no colorectal cancer or precancerous polyp present at colonoscopy follow up). A negative Cologuard test result does not guarantee the absence of CRC or advanced adenoma (pre-cancer). The current Cologuard screening interval is every 3 years. ([place] Cancer Society and U.S. Multi-Society Task Force). Cologuard performance data in a 10,000 patient pivotal study using colonoscopy as the reference method can be accessed at the following location: www.Skym[employer]/results. Additional description of the Cologuard test process, warnings and precautions can be found at www.SoshiGamesrd.com. Stool STOOL SPECIMEN / Unknown 11/27/2023 4:00 AM TRUCK OPERATOR 11/28/2023 8:59 PM TRUCK OPERATOR us Kaleigh Trevino EMPLOYMENT OFFICER BODY FLUIDS AND STOOLS Final Res ult [employer] CLIA # [id number] [address] , [address] [place] [address] * (ABNORMAL) LIPID PANEL (08/31/2023 9:36 AM TRUCK OPERATOR) CHOLESTEROL 222(H) <200 mg/dL [facility] HDL 39(L) > OR = 50 mg/dL [facility] TRIGLYCERIDE 261(H) <150 mg/dL [facility] Comment: If a non-fasting specimen was collected, consider repeat triglyceride testing on a fasting specimen if clinically indicated. Delon et al. J. of Clin. Lipidol. 2015;9:129-169. LDL CALCULATED 143(H) mg/dL (calc) [facility] Comment: Reference range: <100 Desirable range <100 mg/dL for primary prevention; <70 mg/dL for patients with CHD or diabetic patients with > or = 2 CHD risk factors. LDL-C is now calculated using the Emy calculation, which is a validated novel method providing better accuracy than the Friedewald equation in the estimation of LDL-C. Ehsan SS et al. ELLE. 2013;310(19): 8939-0720 (http://education.[employer]./faq/XNY227) CHOL/HDL RATIO 5.7(H) <5.0 (calc) [facility] TOTAL NON-HDL CHOL(LDL+VLDL) 183(H) <130 mg/dL (calc) [facility] Comment: For patients with diabetes plus 1 major ASCVD risk factor, treating to a non-HDL-C goal of <100 mg/dL (LDL-C of <70 mg/dL) is considered a therapeutic option. Test Performed at: [facility] [address] [facility] [place] [address] Justin Griffin MD Blood 08/31/2023 9:36 AM TRUCK OPERATOR 09/01/2023 4:17 AM TRUCK OPERATOR us Harini Cook EMPLOYMENT OFFICER CHEMISTRY ORDERABLES Final Result [facility] [phone] [facility] [address] [place] [address] * XR DEXA BONE DENSITY AXIAL 1 OR MORE SITES (02/22/2021 12:15 PM CDT) Anatomical Region Laterality Modality Other Impressions 02/22/2021 3:24 PM CDT Normal bone density at all locations lying significantly above the average the patient's age-matched control. Narrative 02/22/2021 3:24 PM CDT DEXA Evaluation of the Lumbar Spine and Left Proximal Femur Reason for Consultation: Ovarian failure. Evaluation of bone mineral density. The following absorptiometry data were obtained. The quality of this examination is acceptable with regards to count density, processed images, data display and lack of important artifacts (including but not limited to motion and attenuation artifacts). Serial examination number one. L1-L4 BMD (g/cm2): 1.211 Adult T-score: 1.5 Adult Z-score: 3.7 Left Femoral Neck BMD (g/cm2): 0.797 Adult T-score: -0.5 Adult Z-score: 1.4 Left Total Hip BMD (g/cm2): 0.932 Adult T-score: -0.1 Adult Z-score: 1.5 Procedure Note Nguyễn Whitehead MD - 03/30/2021 DEXA Evaluation of the Lumbar Spine and Left Proximal Femur Reason for Consultation: Ovarian failure. Evaluation of bone mineral density. The following absorptiometry data were obtained. The quality of this examination is acceptable with regards to count density, processed images, data display and lack of important artifacts (including but not limited to motion and attenuation artifacts). Serial examination number one. L1-L4 BMD (g/cm2): 1.211 Adult T-score: 1.5 Adult Z-score: 3.7 Left Femoral Neck BMD (g/cm2): 0.797 Adult T-score: -0.5 Adult Z-score: 1.4 Left Total Hip BMD (g/cm2): 0.932 Adult T-score: -0.1 Adult Z-score: 1.5 IMPRESSION Normal bone density at all locations lying significantly above the average the patient's age-matched control. us Vidal LYLES DIAGNOSTIC IMAGING ORDERABLES Final Result from Last 3 Months or Most Recently Relevant to Health Maintenance [place] [address] [facility] [id number] * Guarantor: DURGA HUANGDANO Kyle Account Type Relation to Patient Date of Phone Billing Address Personal/Family [address] [place] [address] [employer] RX Member Subscriber Plan / Payer (Ef fective 2015-Present) Name:Leesa Huang Relation to Subscriber:Self Name:Leesa Huang Payer ID:Not on file Group ID:[id number] Type:RX Medicare Part D Address: [address] Advance Directives For more information, please contact: [phone] * Full Code (Latest Code Status on File) Date Activated Date Inactivated Comments 04/21/2025 9:44 AM * NO CPR (In Event of Cardiopulmonary Arrest) Date Activated Date Inactivated Comments 04/18/2023 11:56 AM 04/21/2025 9:44 AM Care Teams Spike Machine Heater Relationship Specialty Start Date End Date Shant Ryan MD PCP - General Family Practice 09/02/22
--- OUTSIDE RECORDS SUMMARY | 2025-05-30 17:06 | XMS_ITS | Encounter Summary ---
Author Organization [facility] Address [address] [place] [address] Care Team Providers Care Side Seam Tender Name Role Phone Shant Ryan MD Primary Care Provider [phone] Reason for Visit * Reason Onset Date Comments Results 05/25/2025 Encounter Details Date Type Department Care Team (Latest Contact Info) Description 05/25/2025 Results Follow-Up [facility] Medicine [place] [address] [place] [phone] Kaleigh Trevino [facility] [address] [place] [address] COMPREHENSIVE METABOLIC PANEL Social History Tobacco Use Types Packs/Day Years Used Date Smoking Tobacco: Never Passive Smoke Exposure: Never Smokeless Tobacco: Never Alcohol Use Standard Drinks/Week Comments No 0 (1 standard drink = 0.6 oz pur e alcohol) Comments No Sex and Gender Information Value Date Recorded Sex Assigned at Not on file Legal Sex Female 6:20 AM BINDING MACHINE OPERATOR Gender Identity Not on file Sexual Orientation Not on file documented as of this encounter Miscellaneous Notes * Telephone Encounter - Jacqueline Owen RN - 05/26/2025 9:16 AM CDT 05/26/2025 9:16 AM Called and notified patient of results. Voiced understanding. Jacqueline VELOZ * Telephone Encounter - Jacqueline Owen RN - 05/26/2025 9:16 AM CDT ----- Message from Kaleigh Trevino sent at 05/25/2025 9:07 AM CDT ----- Kidney function is within normal range. SHUBHAM Mckeon, 05/25/2025 9:07 AM ----- Message ----- From: Shashi Lomeli [facility]coming [facility] Results Sent: 05/21/2025 11:37 AM CDT To: SHUBHAM Mckeon documented in this encounter Plan of Treatment Not on file documented as of this encounter Visit Diagnoses Not on filedocumented in this encounter Care Teams Side Seam Tender Relationship Specialty Start Date End Date Shant Ryan MD PCP - General Family Practice 09/02/22 documented as of this encounter
--- OUTSIDE RECORDS SUMMARY | 2025-05-30 17:06 | XMS_ITS | Encounter Summary ---
Author Organization [employer] [facility] Address [address] [place] [address] Care Team Providers Care Film Editor Supervisor Name Role Phone Hazel Martínez MD Primary Care Provider [phone] Encounter Details Date Type Department Care Team (Late st Contact Info) Description 09/04/[address] [facility] [address] [place] [address] Vidal Banks [place] NO ADDRESS ON FILE Bilateral hip pain Social History Tobacco Use Types Packs/Day Years Used Date Smoking Tobacco: Never Smokeless Tobacco: Never Alcohol Use Standard Drinks/Week Comments No 0 (1 standard drink = 0.6 oz pur e alcohol) Comments No Sex and Gender Information Value Date Recorded Sex Assigned at Not on file Legal Sex Female 1:37 PM COMMUNICATIONS OFFICER Gender Identity Not on file Sexual Orientation Not on file COVID-19 Exposure Response Date Recorded In the last month, have you been in contact with someone who was confirmed or suspected to have Coronavirus / COVID-19? No / Unsure 09/02/2020 8:42 AM COMMUNICATIONS OFFICER documented as of this encounter Plan of Treatment Not on file documented as of this encounter Results * XR HIPS BILAT MIN 5 VIEWS (09/02/2020 4:15 PM COMMUNICATIONS OFFICER) Anatomical Region Laterality Modality Lower Extremity Computed Radiogr aphy 09/09/2020 8:19 AM COMMUNICATIONS OFFICER Impressions 09/10/2020 8:36 AM COMMUNICATIONS OFFICER IMPRESSION: No acute osseous abnormality is noted. [id number] Narrative 09/10/2020 8:36 AM COMMUNICATIONS OFFICER ATTENTION: This replaces accession number [id number]. Exam: XR HIPS BILAT MIN 5 VIEWS Reason For Exam: Pain. Diagnosis: Bilateral hip pain; Bilateral hip pain. COMPARISON: None FINDINGS: No acute fracture, subluxation, dislocation, or destructive osseous lesion is seen. Joint spaces are preserved. Soft tissues are grossly unremarkable. Procedure Note Saúl Martines MD - 09/10/2020 ATTENTION: This replaces accession number [id number]. Exam: XR HIPS BILAT MIN 5 VIEWS Reason For Exam: Pain. Diagnosis: Bilateral hip pain; Bilateral hip pain. COMPARISON: None FINDINGS: No acute fracture, subluxation, dislocation, or destructive osseous lesion is seen. Joint spaces are preserved. Soft tissues are grossly unremarkable. IMPRESSION: No acute osseous abnormality is noted. [id number] [facility] DIAGNOSTIC IMAGING ORDERABLES Final Result documented in this encounter Visit Diagnoses Diagnosis Bilateral hip pain Pain in joint, pelvic region and thigh Bilateral hip pain Pain in joint, pelvic region and thigh documented in this encounter Care Teams Film Editor Supervisor Relationship Specialty Start Date End Date Hazel Martínez MD [address] [address] PCP - General Family Practice 11/28/13 documented as of this encounter
--- OUTSIDE RECORDS SUMMARY | 2025-05-30 17:06 | XMS_ITS | Encounter Summary ---
Author Organization [facility] Address [address] [place] [address] Care Team Providers Care Transplant Registered Nurse Name Role Phone Shant Ryan MD Primary Care Provider [phone] Reason for Visit * Reason Onset Date Comments Referral 05/22/2025 Encounter Details Date Type Department Care Team (Late st Contact Info) Description 05/22/2025 Telephone [facility] Medicine [address] [address] [facility] [address] [place] [address] Referral Social History Tobacco Use Types Packs/Day Years Used Date Smoking Tobacco: Never Passive Smoke Exposure: Never Smokeless Tobacco: Never Alcohol Use Standard Drinks/Week Comments No 0 (1 standard drink = 0.6 oz pur e alcohol) Comments No Sex and Gender Information Value Date Recorded Sex Assigned at Not on file Legal Sex Female 6:20 AM METAL STUD FRAMER Gender Identity Not on file Sexual Orientation Not on file documented as of this encounter Miscellaneous Notes * Telephone Encounter - Vi Solitario - 05/22/2025 1:42 PM CDT 05/22/2025 1:42 PM I tried to call patient and find out of her mri had been scheduled. No answer when I called. Vi documented in this encounter Plan of Treatment Not on file documented as of this encounter Visit Diagnoses Not on filedocumented in this encounter Care Teams Transplant Registered Nurse Relationship Specialty Start Date End Date Shant Ryan MD PCP - General Family Practice 09/02/22 documented as of this encounter
--- OUTSIDE RECORDS SUMMARY | 2025-05-30 17:06 | XMS_ITS | Encounter Summary ---
Author Organization [facility] Address [address] [place] [address] Care Team Providers Care Database Dba Name Role Phone Shant Ryan MD Primary Care Provider [phone] Encounter Details Date Type Department Care Team (Late st Contact Info) Description 05/28/2025 Orders Only [facility] Family Medicine [place] [address] [facility] [address] [place] [phone] Kaleigh Trevino FNP [address] [facility] [place] [address] Kidney pain Social History Tobacco Use Types Packs/Day Years Used Date Smoking Tobacco: Never Passive Smoke Exposure: Never Smokeless Tobacco: Never Alcohol Use Standard Drinks/Week Comments No 0 (1 standard drink = 0.6 oz pur e alcohol) Comments No Sex and Gender Information Value Date Recorded Sex Assigned at Not on file Legal Sex Female 6:20 AM BUNDLE SHAKER Gender Identity Not on file Sexual Orientation Not on file documented as of this encounter Plan of Treatment Not on file documented as of this encounter Visit Diagnoses Diagnosis Kidney pain Renal colic documented in this encounter Care Teams Database Dba Relationship Specialty Start Date End Date Shant Ryan MD PCP - General Family Practice 09/02/22 documented as of this encounter
--- OUTSIDE RECORDS SUMMARY | 2025-05-30 17:06 | XMS_ITS | Encounter Summary ---
Author Organization [facility] Address [address] [place] [address] Care Team Providers Care Internet Retailer Name Role Phone Hazel Martínez MD Primary Care Provider [phone]- [phone] Encounter Details Date Type Department Care Team (Late st Contact Info) Description 09/02/2020 Ancillary Orders [facility] Medicine [address] [address] Vidal Banks PA NO ADDRESS ON FILE Bilateral hip pain Social History Tobacco Use Types Packs/Day Years Used Date Smoking Tobacco: Never Smokeless Tobacco: Never Alcohol Use Standard Drinks/Week Comments No 0 (1 standard drink = 0.6 oz pur e alcohol) Comments No Sex and Gender Information Value Date Recorded Sex Assigned at Not on file Legal Sex Female 1:37 PM GOLF CLUB HEAD FORMER Gender Identity Not on file Sexual Orientation Not on file COVID-19 Exposure Response Date Recorded In the last month, have you been in contact with someone who was confirmed or suspected to have Coronavirus / COVID-19? No / Unsure 09/02/2020 8:42 AM GOLF CLUB HEAD FORMER documented as of this encounter Plan of Treatment Not on file documented as of this encounter Results * XR HIPS BILATERAL 3-4 VIEWS (09/02/2020 3:41 PM GOLF CLUB HEAD FORMER) Anatomical Region Laterality Modality Lower Extremity Computed Radiogr aphy 09/02/2020 3:43 PM GOLF CLUB HEAD FORMER Addenda Addendum by Saúl Martines MD on 09/10/2020 8:36 AM GOLF CLUB HEAD FORMER ATTENTION: PLEASE DISREGARD THIS ACCESSION NUMBER. The exam was ordered incorrectly. The exam has been reordered with the correct information, and the report has been moved to the new accession number: [id number]. [id number] Impressions 09/02/2020 7:20 PM GOLF CLUB HEAD FORMER IMPRESSION: No acute osseous abnormality is noted. Narrative 09/02/2020 7:20 PM GOLF CLUB HEAD FORMER XR HIPS BILATERAL 3-4 VIEWS Reason For Exam: See Diagnosis. Diagnosis: Bilateral hip pain; Bilateral hip pain. COMPARISON: None FINDINGS: No acute fracture, subluxation, dislocation, or destructive osseous lesion is seen. Joint spaces are preserved. Soft tissues are grossly unremarkable. Procedure Note Saúl Martines MD - 09/02/2020 XR HIPS BILATERAL 3-4 VIEWS Reason For Exam: See Diagnosis. Diagnosis: Bilateral hip pain; Bilateral hip pain. COMPARISON: None FINDINGS: No acute fracture, subluxation, dislocation, or destructive osseous lesion is seen. Joint spaces are preserved. Soft tissues are grossly unremarkable. IMPRESSION: No acute osseous abnormality is noted. Vidal LYLES DIAGNOSTIC IMAGING ORDERABLES Edited Result - Final documented in this encounter Visit Diagnoses Diagnosis Bilateral hip pain Pain in joint, pelvic region and thigh Bilateral hip pain Pain in joint, pelvic region and thigh documented in this encounter Care Teams Internet Retailer Relationship Specialty Start Date End Date Hazel Martínez MD [address] [phone] PCP - General Family Practice 11/28/13 documented as of this encounter
--- OUTSIDE RECORDS SUMMARY | 2025-05-30 17:06 | XMS_ITS | Encounter Summary ---
Author Organization [facility] Address [address] [place] [address] Care Team Providers Care Sports Broadcasting Internship Name Role Phone Hazel Martínez MD Primary Care Provider [phone]- [phone] Encounter Details Date Type Department Care Team (Late st Contact Info) Description 11/25/2019 Ancillary Orders [facility] Medicine [address] [address] Vidal Banks PA NO ADDRESS ON FILE Mid back pain Social History Tobacco Use Types Packs/Day Years Used Date Smoking Tobacco: Never Smokeless Tobacco: Never Alcohol Use Standard Drinks/Week Comments No 0 (1 standard drink = 0.6 oz pur e alcohol) Comments No Sex and Gender Information Value Date Recorded Sex Assigned at Not on file 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 Exam: XR THORACIC SPINE 3 VW Date/Time of Exam: 11/25/2019 10:04 AM Reason For Exam: See Diagnosis. Diagnosis: Mid back pain. Comparison: None FINDINGS: Frontal, lateral and swimmer's projection show normal alignment. 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 No compression fracture or subluxation. Narrative Procedure Note Erick Hernadez, - 11/25/2019 IMPRESSION: Please see below. Exam: XR THORACIC SPINE 3 VW Date/Time of Exam: 11/25/2019 10:04 AM Reason For Exam: See Diagnosis. Diagnosis: Mid back pain. Comparison: None FINDINGS: Frontal, lateral and swimmer's projection show normal alignment. 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 No compression fracture or subluxation. Vidal LYLES DIAGNOSTIC IMAGING ORDERABLES Final Result documented in this encounter Visit Diagnoses Diagnosis Mid back pain Backache, unspecified Mid back pain Backache, unspecified documented in this encounter Care Teams Sports Broadcasting Internship Relationship Specialty Start Date End Date Hazel Martínez MD [address] [phone] PCP - General Family Practice 11/28/13 documented as of this encounter
--- OUTSIDE RECORDS SUMMARY | 2025-05-30 17:06 | XMS_ITS | Clinical Summary ---
Author Organization [facility] Address [address] [facility] [place] [address] Care Team Providers Care Leasing Coordinator Name Role Phone Hazel Martínez MD Primary Care Provider Allergies Active Allergy Reactions Criticality Noted Date Comments Cephalexin Anaphylaxis High 03/09/2015 Ciprofloxacin Abdominal Pain Low 03/03/2015 Medications C,E,zinc,copper 11/muukj5p/lut (OCUVITE ADULT 50 PLUS ORAL) Take by mouth 2 times daily. Active docusate sodium (COLACE) 100 mg capsule Take 2 Capsules (200 mg) by mouth 2 times daily as needed for Constipation (stop after 2 loose stools). 28 Capsule 9 Active lactulose (KRISTALOSE) 20 gram Packet Take 20 Grams by mouth 3 times daily. 90 Packet 1 9 Active famotidine (PEPCID) 40 mg tablet Take 1 Tablet (40 mg) by mouth 2 times daily. 90 Tablet 1 1 Active lisinopril-hydr oCHLOROthiazide (ZESTORETIC) 20-12.5 mg tablet TAKE 1 TABLET BY MOUTH DAILY 90 Tablet 3 1 Active baclofen (LIORESAL) 10 mg tablet Take 1 Tablet (10 mg) by mouth 3 times daily. 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/19/2019 Thickened endometrium 06/22/20182017 Ovarian cyst, bilateral 06/22/201803/24 Acute pyelonephritis 03/03/2015 018 Immunizations Immunization Administration Dates Next Due (PNEUMOVAX 23)(50 YRS UP) PN EUMOCOCCAL POLYSACCHARIDE (PPV23) 0.5 ML, IM 08/01/2018 (SPIKEVAX) (12 YRS UP PRIMAR Y SERIES) COVID-19 VACCINE - MRNA-1273(PF) 100 MCG/0.5 ML IM SUSP 12/28/2020,11/27/2020 Influenza Seasonal Unspecified Formulation IM Influenza Vaccine High Dose 65+ Yrs IM 9,07/26/2018 07/26/2019 PREVNAR (PCV13) pneumococcal 13-valent conjugate Vaccine 05/08/2017 Family History Medical History Relation Name Comments Cancer Father Cancer Maternal Aunt Diabetes Maternal Grandmother Cancer Maternal Uncle Relation Name Status Comments Father Maternal Aunt Maternal Grandmother Maternal Uncle Social History Tobacco Use Types Packs/Day Years Used Date Smoking Tobacco: Never Smokeless Tobacco: Never Tobacco Cessation:Counseling Given: Yes Alcohol Use Standard Drinks/Week Comments No 0 (1 standard drink = 0.6 oz pur e alcohol) Comments No Sex and Gender Information Value Date Recorded Sex Assigned at Not on file 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 Gender Identity Not on file Sexual Orientation Not on file Last Filed Vital Signs Vital Sign Reading Time Taken Comments Blood Pressure 132/60 02/03/2021 10:05 AM CDT Pulse 62 02/03/2021 10:05 AM CDT Temperature 35.9 C (96.7 F) 02/03/2021 10:05 AM CDT Respiratory Rate 16 02/03/2021 10:05 AM CDT Oxygen Saturation 98% 02/03/2021 10:05 AM CDT Inhaled Oxygen Concentration - - Weight 83.1 kg (183 lb 3.2 oz) 02/03/2021 10:05 AM CDT Height 160 cm (5' 3 ) 02/03/2021 10:05 AM CDT Body Mass Index 32.45 02/03/2021 10:05 AM CDT Plan of Treatment Health Maintenance Due Date Last Done Comments DIABETES ANNUAL FOOT EXAM 1967 DIABETES ANNUAL RETINAL EXAM 1967 DIABETES HBA1C Q 6 MONTHS 1967 DIABETES MICROALBUMIN ANNUAL SCREEN 1967 FIT/ DNA Q 3 YEARS (AUTO ORDER) 1967 FIT/FOBT Q 1 YEAR (AUTO ORDER) 1967 FLEX SIG/CT COLONOGRAPHY Q 5 YEARS (AUTO ORDER) 1967 DTAP/TDAP/TD VACCINES (1 - Tdap) 1968 COLORECTAL CANCER SCREENING (AUTO ORDER) 1994 COLORECTAL SCREENING 1994 Colorectal Cancer Screening (AUTO ORDER) 1994 Colorectal Cancer Screening 1994 FIT-DNA Q 3 years 1994 FIT/FOBT Q 1 year 1994 Flex Sig/CT Colonography Q 5 years 1994 ZOSTER VACCINE (1 of 2) 1999 LDL CHOLESTEROL ANNUAL 02/03/2022 , 04/29/2020, 03/05/2019, Additional history exists COVID-19 Vaccine (3 - 2023-2 5 season) 2024 12/28/2020, 11/27/2020 Medicare Advantage (MD) Preventative Visit/Annual Wellness Visit 10/23/2024 02/03/2021, 04/03/2017 RSV VACCINE (60+ or ) (1 - 1-dose 75+ series) 2024 INFLUENZA VACCINE (#1) 2025 0, 07/23/2019, 07/26/2018 OSTEOPOROSIS SCREENING 02/22/2026 02/22/2021 PNEUMOCOCCAL VACCINE 50+ YEARS Completed 1 , 05/08/2017, 05/08/2017 Medical Devices Implanted Type Area Highway Maintainer Device Identifier Shelf Expiration Date Model / Serial / Lot Hemostatic Surgiflo 8ml W/Thrombin 2994 - [id number] Implanted:Qty: 1 on 02/27/2019 by Cruz Springer MD at [facility] N/A: Pelvis [employer] 04/21/2020 [id number] / / [id number] Procedures Procedure Name Priority Date/Time Associated Diagnosis Comments XR DEXA BONE DENSITY AXIAL 1 OR MORE SITES Routine 02/22/2021 12:15 PM CDT Postmenopausal LDL CHOLESTEROL, DIRECT Routine 02/03/2021 10:29 AM CDT Hyperlipidemia, unspecified hyperlipidemia type from Last 3 Months or Most Recently Relevant to Health Maintenance Results * XR DEXA BONE DENSITY AXIAL 1 OR MORE SITES (02/22/2021 12:15 PM CDT) Anatomical Region Laterality Modality Digital Radiogra phy 02/22/2021 12:1 8 PM CDT Impressions 02/22/2021 3:24 PM CDT IMPRESSION: Normal bone density at all locations lying [...] 1.5 Procedure Note Nguyễn Whitehead MD - 02/22/2021 DEXA Evaluation of the Lumbar Spine and [...] 0.932 Adult T-score: -0.1 Adult Z-score: 1.5 IMPRESSION: Normal bone density at all locations lying significantly above the average the patient's age-matched control. Vidal LYLES DIAGNOSTIC IMAGING ORDERABLES Final Result * (ABNORMAL) LDL CHOLESTEROL, DIRECT (02/03/2021 10:29 AM CDT) LDL CHOLESTEROL, DIRECT 105(H) <100 mg/dL 02/03/2021 8:46 PM CDT [facility] Blood Collection / Unknown 02/03/2021 10:29 AM CDT 02/03/2021 7:44 PM CDT Narrative [facility] - 02/03/2021 8:46 PM CDT LDL CHOLESTEROL mg/dL LDL <70, OPTIMAL if have Atherosclerotic cardiovascular disease (ASCVD) or intermediate or higher (>7.5%) 10 year risk of ASCVD including most adults with diabetes. LDL <100, Optimal in adult patients with low (<7.5%) 10 year ASCVD risk LDL 100-160, Suboptimal LDL >160, High LDL >190, Very high Based on AHA/NCEP guidelines Vidal LYLES CHEMISTRY ORDERABLES Final Re sult [facility] CLIA# [id number] [address] [place] [address] from Last 3 Months or Most Recently Relevant to Health Maintenance Insurance [facility] RX [employer] RX Member Subscriber Plan / Payer (Ef fective 2015-Present) Name:Leesa Suazo Relation to Subscriber:Self Name:Leesa Suazo Payer ID:Not on file Group ID:[id number] Type:RX Medicare Part D Address: [place] Advance Directives For more information, please contact: [phone] * Full Code (Latest Code Status on File) Date Activated Date Inactivated Comments 02/27/2019 12:00 PM 02/27/2019 9:25 PM * Full Code Date Activated Date Inactivated Comments 02/27/2019 7:18 AM 02/27/2019 12:00 PM * Full Code Date Activated Date Inactivated Comments 09/12/2018 2:48 PM 09/12/2018 9:55 PM * Full Code Date Activated Date Inactivated Comments 09/12/2018 11:31 AM 09/12/2018 2:48 PM * Full Code Date Activated Date Inactivated Comments 03/03/2015 1:16 PM 03/06/2015 2:45 PM Care Teams Leasing Coordinator Relationship Specialty Start Date End Date Hazel Martínez MD [address] [facility] [address] [place] [address] PCP - General Family Practice 11/28/13
--- OUTSIDE RECORDS SUMMARY | 2025-05-30 17:06 | XMS_ITS | Encounter Summary ---
Author Organization [facility] Address [address] [place] [address] Care Team Providers Care Environmental Protection Officer Name Role Phone Shant Ryan MD Primary Care Provider +1 -[phone] Reason for Visit * Reason Onset Date Comments Results 05/25/2025 Encounter Details Date Type Department Care Team (Late st Contact Info) Description 05/25/2025 Results Follow-Up [facility] Medicine [place] [address] [place] [phone] Kaleigh Trevino [facility] [address] [place] [address] XR HIP 2 OR 3 VIEWS LT Social History Tobacco Use Types Packs/Day Years Used Date Smoking Tobacco: Never Passive Smoke Exposure: Never Smokeless Tobacco: Never Alcohol Use Standard Drinks/Week Comments No 0 (1 standard drink = 0.6 oz pur e alcohol) Comments No Sex and Gender Information Value Date Recorded Sex Assigned at Not on file 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 Voiced understanding. Jacqueline VELOZ * Telephone Encounter - Jacqueline Owen RN - 05/26/2025 9:16 AM CDT ----- Message from Kaleigh Trevino sent at 05/25/2025 9:47 AM CDT ----- X-ray of the left hip is negative for joint space loss, signs of soft tissue changes, or other bonyabnormality that helps explain her pain. SHUBHAM Mckeon, 05/25/2025 9:47 AM ----- Message ----- From: Shashi Lomeli Incoming Radiology Results Sent: 05/22/2025 9:58 AM CDT To: SHUBHAM Mckeon documented in this encounter Plan of Treatment Not on file documented as of this encounter Visit Diagnoses Not on filedocumented in this encounter Care Teams Environmental Protection Officer Relationship Specialty Start Date End Date Shant Ryan MD PCP - General Family Practice 09/02/22 documented as of this encounter
--- OUTSIDE RECORDS SUMMARY | 2025-05-30 17:06 | XMS_ITS | Encounter Summary ---
Author Organization [facility] Address [address] [place] [address] Care Team Providers Care Agricultural Mechanic Name Role Phone Shant Ryan MD Primary Care Provider [phone] -[phone] Reason for Visit * Reason Comments Medication Assistance Encounter Details Date Type Department Care Team (Late st Contact Info) Description 05/22/2025 Telephone [facility] Family Medicine [address] [address] Kaleigh Trevino FNP [address] [place] [phone] Medication Assistance Social History Tobacco Use Types Packs/Day Years Used Date Smoking Tobacco: Never Passive Smoke Exposure: Never Smokeless Tobacco: Never Alcohol Use Standard Drinks/Week Comments No 0 (1 standard drink = 0.6 oz pur e alcohol) Comments No Sex and Gender Information Value Date Recorded Sex Assigned at Not on file Legal Sex Female 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 * Telephone Encounter - Saturnino Garcias - 05/22/2025 2:47 PM CDT Copied from [facility] #[id number]. Topic: Medication Request >> May 22, 2025 2:46 PM Saturnino Cooper wrote: Caller Name: Leesa Sauzo Callback Number: [phone] (mobile) Medication (Ask patient/caregiver to spell if possible): sulfamethoxazole- trimethoprim (BACTRIM DS)800-160 mg tablet Note: All medication prescriptions can be requested using one [facility] [place] [facility] Call Notes: Caller is requesting a new medication, which is not active on their medication list. Patient states that she was seen previously for a bladder infection, and the symptoms have returned. Patient is - Not High Risk Are you currently experiencing any symptoms? Yes, and has been seen by provider for the symptom(s) Is there an encounter open? No documented in this encounter Plan of Treatment Not on file documented as of this encounter Visit Diagnoses Not on filedocumented in this encounter Care Teams Agricultural Mechanic Relationship Specialty Start Date End Date Shant Ryan MD PCP - General Family Practice 09/02/22 documented as of this encounter
--- OUTSIDE RECORDS SUMMARY | 2025-05-30 17:06 | XMS_ITS | Encounter Summary ---
Author Organization [facility] Address [address] [facility] [address] [place] [address] Care Team Providers Care Crabber Name Role Phone Hazel Martínez MD Primary Care Provider [phone]- [phone] Reason for Referral * Outpatient Services (Routine) - Closed Specialty Diagnoses / Procedures Referred By Contac t Referred To Contact Radiology Diagnoses Right kidney mass Procedures US RENAL US RENAL + DOPPLER Vidal Banks PA [facility] Ultrasound [place] [address] [place] [address] Phone: tel: fax: Referral ID Status Reason Start Date Expiration Date V isits Requested Visits Authorized [id number] Closed [facility] View CTS to Schedule (SGF) 04/19/2018 05/20/2019 1 1 Encounter Details Date Type Department Care Team (Late st Contact Info) Description 04/23/2018 Ancillary Orders [facility] Family Medicine [place] [address] [facility] [address] [place] [address] Vidal Banks PA NO ADDRESS ON FILE Right kidney mass Social History Tobacco Use Types Packs/Day Years Used Date Smoking Tobacco: Never Alcohol Use Standard Drinks/Week Comments No 0 (1 standard drink = 0.6 oz pur e alcohol) Comments No Sex and Gender Information Value Date Recorded Sex Assigned at Not on file 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 US RENAL, 04/23/2018 8:57 AM REASON FOR EXAM: Right kidney mass. COMPARISON: 03/02/2015 TECHNIQUE: Multiplanar real-time ultrasonography of the retroperitoneum and urinary tract using hutson-scale imaging, supplemented by color and spectral Doppler as needed. FINDINGS: . Right kidney: Normal size and echogenicity without hydronephrosis. There is a heterogeneous structure in the anterolateral aspect of the kidney which measures 3.7 x 3.5 x 2.8 cm. This demonstrates posterior acoustic enhancement, but there are diffuse low-level internal echoes and septations. No internal color flow is noted. Renal length = 12.3 cm. . Left kidney: Normal size, contour and echogenicity without perinephric fluid, or hydronephrosis. No focal masses are identified. Renal length = 10.5 cm. . Additional comments: None ++++++++++++++++++++ IMPRESSION: No hydronephrosis. Right renal complex cyst or mass. Renal protocol MRI may be useful for further delineation. This is new from the prior study from 2014. Narrative Procedure Note Jose Arias MD - 04/23/2018 IMPRESSION: Please see below. US RENAL, 04/23/2018 8:57 AM REASON FOR EXAM: Right kidney mass. COMPARISON: 03/02/2015 TECHNIQUE: Multiplanar real-time ultrasonography of the retroperitoneum and urinary tract using hutson-scale imaging, supplemented by color and spectral Doppler as needed. FINDINGS: . Right kidney: Normal size and echogenicity without hydronephrosis. There is a heterogeneous structure in the anterolateral aspect of the kidney which measures 3.7 x 3.5 x 2.8 cm. This demonstrates posterior acoustic enhancement, but there are diffuse low-level internal echoes and septations. No internal color flow is noted. Renal length = 12.3 cm. . Left kidney: Normal size, contour and echogenicity without perinephric fluid, or hydronephrosis. No focal masses are identified. Renal length = 10.5 cm. . Additional comments: None ++++++++++++++++++++ IMPRESSION: No hydronephrosis. Right renal complex cyst or mass. Renal protocol MRI may be useful for further delineation. This is new from the prior study from 2015. us Vidal LYLES ORDERABLES Final Result documented in this encounter Visit Diagnoses Diagnosis Right kidney mass Unspecified disorder of kidney and ureter Right kidney mass Unspecified disorder of kidney and ureter documented in this encounter Care Teams Crabber Relationship Specialty Start Date End Date Hazel Martínez MD [address] [phone] PCP - General Family Practice 11/28/13 documented as of this encounter
--- NOTE | 2025-05-30 17:19 | XRR_ITS ---
PROCEDURE INFORMATION: Exam: XR Left Knee Exam date and time: 05/30/2025 5:29 PM Age: 74 years old Clinical indication: Injury or trauma; Fall; Blunt trauma; Knee; Left; Additional info: Fall/knee pain TECHNIQUE: Imaging protocol: Radiologic exam of the left knee. Views: 3 views. COMPARISON: CR XR knees AP WB w LT lmt ORTH 06/05/2024 3:24 PM FINDINGS: Bones/joints: Moderate to severe tricompartmental bony degenerative changes with joint space narrowing most conspicuous in the medial tibiofemoral compartment. No definite acute fracture, subluxation, dislocation. Soft tissues: Normal. XR/XR knee LT 3V* [id number] IMPRESSION: Moderate to severe tricompartmental bony degenerative changes with joint space narrowing most conspicuous in the medial tibiofemoral compartment.
--- NOTE | 2025-05-30 17:21 | ED_ITS ---
HPI - Extremity Problem General: Chief complaint: Extremity Injury, Lower Stated complaint: Fell hit L Knee Time Seen by Provider: 05/30/25 17:12 Source: patient Mode of arrival: ambulatory Limitations: no limitations History of Present Illness: Patient is a 74-year-old female who presents the emergency department after a fall that occurred just prior to arrival. States that she was walking into the hospital with her , when her left knee gave out and she fell directly onto her left knee. She has been ambulatory since, but reports severe pain in her left knee. She has had issues with this knee for a while, stating that she has seen orthopedics for cortisone shots. She denies any other injuries with the fall, specifically no pain in her hip and not hitting her head or losing consciousness. No distal neurovascular symptoms reported. No previous surgeries on her left knee. Mild bruising and swelling reported. Has not taken anything for pain. MD Complaint: joint swelling and joint pain Onset (ago): minute(s) Location: left and knee Severity scale (1-10): 10 Associated symptoms: Deny chest pain, fever(s) or rash Related Data Home Medications ?Medication ?Instructions ?Recorded ?Confirmed docusate sodium 100 mg capsule 100 mg PO DAILY 0 03/21/25 (Colace) levothyroxine 75 mcg capsule 75 mcg PO DAILY 12/11/19 03/21/25 lisinopril 20 1 tab PO DAILY 12/11/1911/24 mg-hydrochlorothiazide 12.5 mg tablet lovastatin 40 mg tablet 40 mg PO DAILY 12/11/1902/22 gabapentin 100 mg capsule 100 mg PO DAILY 03/06/24 Previous Rx's ?Medication ?Instructions ?Recorded furosemide 20 mg tablet (Lasix) 20 mg PO DAILY #30 tab s 03/22/24 ketoprofen 25 mg capsule 25 mg PO BID PRN pain #14 ca ps 04/10/24 meloxicam 15 mg tablet 15 mg PO DAILY #90 tabs 05/23 02/13 Allergies Allergy/AdvReac Type Severity Reaction Status Date / Time cephalexin (From Keflex) Allergy Mild ALGY-Rash Verified 03/21/25 11:19 ciprofloxacin Allergy Mild ALGY-Rash Verified 03/21/25 11:19 Review of Systems General: Reports: 10 or more systems reviewed and unremarkable except in HPI and below Const: Reports: other (fall); Denies: fever(s) or chills Card: Denies: chest pain Resp: Denies: dyspnea or productive cough GI: Denies: abdominal pain, nausea, vomiting or diarrhea : Denies: flank pain Musc: Reports: joint pain (left knee) and joint swelling (left knee); Denies: neck pain, back pain, extremity pain, extremity swelling, joint redness, joint warmth, limited range of motion or muscle weakness Skin/Breast: Denies: rash Neuro: Denies: headache(s), numbness in extremities or weakness in extremities PFSH ED PFSH: Medical History Osteoarthritis of right knee Bilateral primary osteoarthritis of knee Primary osteoarthritis of left knee Hypertension Hypothyroid Borderline hyperlipidemia Hypokalemia Dyspepsia Arthritis Family History Other Cancer Hyperlipidemia Hypertension Denies family history of Diabetes CAD (coronary artery disease) Clotting disorder Dementia Psychiatric illness Chronic kidney disease (CKD) Suicide Anesthesia complication Bleeding disorder Family history of premature coronary artery disease Lung disease Stroke Social History Smoking and tobacco/nicotine status: never used tobacco/nicotine Second hand smoke exposure: No Alcohol intake: never Substance/Drug Use: never Lives independently: Yes Household members: spouse Marital status: Physical Exam Const: COMMON NORMALS: patient oriented x3, no limitations, alert and well nourished NUTRITIONAL APPEARANCE: obese HENMT: COMMON NORMALS: normocephalic and atraumatic HEAD & SCALP: normocephalic and atraumatic Neck/C-Spine: COMMON NORMALS: full ROM, supple and no meningeal signs Resp: COMMON NORMALS: normal respiratory effort, No use of accessory muscles and clear to auscultation bilaterally AUSCULTATION: clear to auscultation bilaterally Cardio: COMMON NORMALS: regular rate and regular rhythm RATE: regular rate RHYTHM: regular rhythm Extremity: COMMON NORMALS: capillary refill normal and no clubbing, cyanosis or edema NARRATIVE EXTREMITY EXAM: Edema and bruising noted to left knee. Diffuse tenderness to palpation to the left anterior knee. Bilateral lymphedema. Distal neurovascular exam is normal. Neuro: COMMON NORMALS: patient oriented x3, moves all extremities, no focal motor deficits and no sensory deficits noted SENSORIUM/ORIENTATION: Yes alert MENINGEAL SIGNS: Yes no meningeal signs Skin: COMMON NORMALS: no rashes or lesions noted GENERAL SKIN EXAM: no rashes or lesions noted Course Vital Signs: Vital signs: Vital Signs Temperature 98.0 F 05/30/25 17:02 Pulse Rate 54 L 05/30/25 17:02 Respiratory Rate 16 05/30/25 17:02 Blood Pressure 159/62 05/30/25 17:02 Pulse Oximetry 96 05/30/25 17:02 Oxygen Delivery Me thod Room Air 05/30/25 17:02 MDM - Extremity (Nontraumatic) Medical Decision Making This patient presented with left knee pain after a fall. States that her left knee just gave out, she has had issues with instability in the past and sees orthopedics for injections, also has history of osteoarthritis to bilateral knees. On exam there was mild swelling and diffuse tenderness to palpation of the left knee. The x-ray showing signs of arthritis, however no signs of an acute injury. She reports significant relief after Percocet here in the ED, she is discharged with conservative therapy discussed and she will continue Ortho follow-ups. Lab Data Radiology Impressions Knee X-Ray 05/30/25 17:19 IMPRESSION: Moderate to severe tricompartmental bony degenerative changes with joint space narrowing most conspicuous in the medial tibiofemoral compartment. All radiology interpretation(s) finalized by discharge Discharge Plan Discharge Patient Disposition: Home Clinical Impression: Fall, Contusion of knee, left, Primary osteoarthritis of left knee Condition: Stable Prescriptions: No Action lisinopril-hydrochlorothiazide 20-12.5 mg tablet 1 tab PO DAILY levothyroxine 75 mcg capsule 75 mcg PO DAILY lovastatin 40 mg tablet 40 mg PO DAILY docusate sodium [Colace] 100 mg capsule 100 mg PO DAILY gabapentin 100 mg capsule 100 mg PO DAILY ketoprofen 25 mg capsule 25 mg PO BID PRN (Reason: pain) Qty: 14 0RF meloxicam 15 mg tablet 15 mg PO DAILY Qty: 90 0RF furosemide [Lasix] 20 mg tablet 20 mg PO DAILY Qty: 30 0RF Discharge Orders: Discharge ED (Routine); Ordered 05/30/25 Ordered By: Tito Landis Referrals: Kaleigh Trevino FNP [Primary Care Provider, [facility]] Patient Instructions: Opioid Safety, Pain Management, Patient Portal & Doug Instructions Activity Restrictions/Additional Instructions: Knee injury care Please read these instructions carefully. They explain how to care for the left knee after a fall, on top of longstanding arthritis seen on the X?ray. Pain improved after a dose of oxycodone in the emergency department. The plan is conservative, at-home care and continued follow-up with orthopedics for ongoing injections and arthritis care. - What the X-ray showed - No broken bone was seen. Findings are consistent with chronic ?aaco-jnc-nhyj? arthritis (osteoarthritis) of the knee. - Activity and protection - Rest the knee for the next 24?48 hours, then gradually return to gentle activity as pain allows. Short walks around the home are okay; avoid long walks, stairs when possible, squatting, or kneeling until pain improves. - Ice the knee 15?20 minutes at a time, 3?4 times daily for the first 48?72 hours to reduce pain and swelling. Place a thin cloth between ice and skin. - Elevate the leg when sitting or lying down (knee above the level of the heart, if comfortable). - A simple elastic knee sleeve or hinged brace can be used for comfort and a sense of stability if helpful; this may help decrease feelings of instability and risk of falls in some people. Stop if it increases pain or discomfort. - Use a cane in the opposite hand if the knee feels unsteady to reduce fall risk. - Pain control at home - Start with the safest options first and use the lowest effective dose for the shortest time needed. - Topical anti-inflammatory gel (for example, diclofenac 1% gel): Apply a thin layer to the painful area up to four times daily, not on broken skin, and wash hands afterward. These gels can help knee arthritis pain and generally have fewer stomach and kidney side effects than pills. - Acetaminophen (if no liver disease or heavy alcohol use): Can help mild pain. Regular use offers modest benefit; consider short-term/occasional doses. Do not exceed the total daily limit on the package. Stop and call a clinician for dark urine, yellowing of eyes/skin, or severe nausea. - Oral NSAIDs (such as ibuprofen or naproxen) can help short-term pain but carry risks in older adults, including stomach bleeding, kidney problems, fluid retention, and blood pressure changes. If used, take the lowest effective dose for the shortest time; avoid if there is kidney disease, ulcers/bleeding, heart failure, or blood thinners unless a clinician has told you it is safe. Consider stomach protection if there is a history of stomach upset or ulcers. Stop and call for black stools, vomiting blood, new swelling, or reduced urination. - Opioids: A single dose of oxycodone was given in the emergency department with improvement. Routine opioid use is not recommended for osteoarthritis because risks (confusion, falls, constipation, dependence) outweigh benefits. Do not take any leftover opioid medication unless a clinician specifically prescribes it for this injury. - Home exercises (start when pain allows) - Gentle yaysz-cy-khbgsb: Slowly bend and straighten the knee while lying or sitting, 10?15 times, 2?3 times daily. - Quadriceps sets: Tighten the thigh muscle with the knee straight for 5 seconds, relax for 5 seconds; repeat 10?15 times, 2?3 times daily. - As symptoms improve, add short, flat-ground walks. Regular exercise helps knee arthritis and overall function. - Ongoing arthritis care - Continue scheduled appointments with orthopedics for knee injections and long- term arthritis management. Intra-articular steroid injections may give short- term relief (weeks) for knee osteoarthritis; viscosupplement (?gel?) injections have mixed evidence and may not help some patients. - Fall prevention - Wear supportive shoes, clear tripping hazards at home, use night lights, and consider a cane or walker if the knee feels unstable. A hinged knee brace may help with the feeling of instability in some people. - When to seek medical attention urgently - Severe or worsening pain or swelling that does not improve with rest and ice. - Fever, chills, or the knee becoming hot, very red, or unable to bear any weight. - Numbness, weakness, or the foot becoming cold or pale. - Signs of medication side effects: black/tarry stools, vomiting blood, severe stomach pain, little or no urine, yellowing of skin/eyes, confusion, or severe drowsiness. - Follow-up - See the primary care coordinator or orthopedics within 1?2 weeks, or sooner if symptoms worsen. Bring all medications to the visit. Continue established orthopedic injection schedule as planned. Notes on supplements - Common supplements (glucosamine, chondroitin, turmeric, vitamin D, violetta) have inconsistent benefits for knee osteoarthritis; if used, review costs and possible interactions with a clinician, as benefits are uncertain. These recommendations reflect current guidance favoring exercise, weight management, topical therapies, careful short-term use of exig-elk-uqvowei pain relievers when appropriate, and limited role for opioids in osteoarthritis, especially in older adults. Print Language: Chinese Coding Level of Care Code ED Career Development Coordinator for Macy Roberts
[2025-05-30] MEDS: oxyCODONE-APAP 5-325 mg Tablet 1 TAB PO (17:36)
== END 2025-05-30 18:23 | disposition home or self-care (01) ==
PROVIDERS: Emergency Provider Physician Assistant; PCP Nurse Practitioner Family
DX: S80.02XA Contusion of left knee, initial encounter (principal); W19.XXXA Unspecified fall, initial encounter; M17.12 Unilateral primary osteoarthritis, left knee
CPT/HCPCS: 73562; 99283; J9999

== ENCOUNTER 2025-06-03 11:30 | Outpatient (CLI) | payer MEDICARE, SELFPAY ==
--- NOTE | 2025-06-03 11:36 | MR_ITS ---
WS: [id number] MRI LUMBAR SPINE NONCONTRAST HISTORY: LEFT SCIATIC NERVE PAIN COMPARISON: 02/28/2023 TECHNIQUE: Sagittal and axial multisequence imaging is submitted. Posterior lumbar fusion at L4-5 since 02/28/2023. L4 anterolisthesis by 3.6 mm. No marrow edema or acute fracture. Increase in lumbar lordosis. The spaces are narrowed and desiccated. Conus terminates normally at L1. L1-L2: Diffuse annular disc bulging and mild osteophytic ridging. Bilateral facet arthritis. Mild disc encroachment upon the subarticular recesses. Mild foraminal stenosis. L2-L3: Diffuse annular disc bulging with facet arthritis. Mild subarticular recess and foraminal stenosis. L3-L4: Diffuse annular disc bulging. Central disc protrusion encroaching upon the ventral thecal sac is new. Progression of facet joint arthropathy. Posterior laminectomy defects. Moderate central with subarticular recess and foraminal stenosis which has progressed since 2022. L4-L5: Diffuse annular disc bulging with a large posterior laminectomy defect. Mild RIGHT foraminal stenosis. L5-S1: Mild disc bulging. Nerve roots are distributed in the peripheral thecal sac. No stenosis. Bilateral renal cysts. Atherosclerosis aorta. MR/MR lumbar spine wo con* [id number] IMPRESSION: 1. Status post posterior lumbar fusion at L4-5 with interbody spacer, new sinc e 02/28/2023. 2. Progression of stenosis at L3-4. Moderate central, subarticular recess and foraminal stenosis at L3-4 is new. New central disc protrusion at L3-4. 3. Mild foraminal stenosis at L1-2, L2-3 and on the RIGHT at L4-5. 4. Large posterior laminectomy defects at L3 and L4. 5. Arachnoiditis.
== END 2025-06-03 11:31 | disposition home or self-care (01) ==
LOC: RAD 11:32
PROVIDERS: PCP Nurse Practitioner Family; Visit Provider Nurse Practitioner Family
DX: M54.32 Sciatica, left side (principal); M43.26 Fusion of spine, lumbar region; M48.061 Spinal stenosis, lumbar region without neurogenic claudication; M51.27 Other intervertebral disc displacement, lumbosacral region; M99.63 Osseous and subluxation stenosis of intervertebral foramina of lumbar region; M96.1 Postlaminectomy syndrome, not elsewhere classified; G03.9 Meningitis, unspecified; M51.26 Other intervertebral disc displacement, lumbar region
CPT/HCPCS: 72148

== ENCOUNTER → 2025-06-06 11:30 | Outpatient (BNVA) | payer MEDICARE, SELFPAY | PROVIDERS: PCP Nurse Practitioner Family; Visit Provider Nurse Practitioner | DX: S80.02XA Contusion of left knee, initial encounter (principal); M17.12 Unilateral primary osteoarthritis, left knee; S80.12XA Contusion of left lower leg, initial encounter; X58.XXXA Exposure to other specified factors, initial encounter | CPT/HCPCS: 73560; 73565; 99214 ==

== ENCOUNTER 2025-06-24 14:01 | Outpatient (CLI) | payer MEDICARE, SELFPAY ==
--- NOTE | 2025-06-24 14:30 | CT_ITS ---
WS: [id number] CT LEFT KNEE, NONCONTRAST [facility] TECHNIQUE: Noncontrast CT of the LEFT knee to include the LEFT hip and ankle. CLINICAL INFORMATION: LEFT KNEE PAIN, OA. [facility] PLANNING DLP: 904.[address] scans at [facility] use at least one of these dose optimization techniques: automated exposure control; mA and/or kV adjustment per patient size (includes targeted exams where dose is matched to clinical indication); or iterative reconstruction. FINDINGS: Advanced degenerative arthritis LEFT knee worse in the medial joint compartment with hsnv-dd-ovcb articulation. Hypertrophic patella. Small suprapatellar effusion. Vascular calcification. Sigmoid diverticulosis. CT/CT knee LT [facility] [id number] IMPRESSION: Images obtained for preoperative purposes.
== END 2025-06-24 14:02 | disposition home or self-care (01) ==
LOC: RAD 14:02
PROVIDERS: PCP Nurse Practitioner Family; Visit Provider Nurse Practitioner
DX: M17.12 Unilateral primary osteoarthritis, left knee (principal)
CPT/HCPCS: 73700

== ENCOUNTER → 2025-06-27 09:37 | Outpatient (BNVA) | payer MEDICARE, SELFPAY | PROVIDERS: PCP Nurse Practitioner Family; Visit Provider Nurse Practitioner | DX: M17.11 Unilateral primary osteoarthritis, right knee (principal); M17.12 Unilateral primary osteoarthritis, left knee | CPT/HCPCS: 20610; 36415; 80053; 81001; 85025; 99214; J7318 ==

== ENCOUNTER 2025-08-05 11:01 | Observation (INO) | payer MEDICARE, SELFPAY ==
[2025-08-05] VITALS (22 sets, daily range): BP systolic 84–147; BP diastolic 44–90; PULSE 53–65; RESP 16–18; TEMP 36.3–36.8; O2SAT 92–100; BMI 29.4; BMI 29.5
[2025-08-05] MEDS: acetaminophen 1,000 MG/100 ML PIGGYBACK 400 MG IV (06:25)
--- NOTE | 2025-08-05 06:44 | ANES.PREANE2 ---
Pre-Anesthetic Assessment Height/Weight: Height 1.6 m Weight 75.296 kg O2 Del Method Room Air 08/05/25 06:08 Operation Date: 08/05/25 07:00 Proposed Procedures p LEFT Frederic Robot Total Knee Arthroplasty(Left) - Rica Pike MD Familial anesthetic complications: None Was Beta Shell taken within 24 hours: N/A Was Clonidine taken within 24 hours: N/A Last intake: Intake Last Liquid Date 08/04/25 Last Liquid Time 18:30 Last Solid Date 08/04/25 Last Solid Time 18:30 Social No alcohol and No tobacco Exam alert, oriented x 3, clear to auscultation bilaterally and regular rate & rhythm Airway Mallampati: Class I Dentition: full CV/HEM Hypertension Metabolic Hyperlipidemia and Thyroid Disease Anesthetic Plan ASA status: 3 Anesthesia: General Other: Patient prefers general over spinal and declines nerve block in favor of Exparel injection Risk of > 500 ml blood loss (7ml/kg in children): No Medications/Allergies Home Medications ?Medication ?Instructions ?Recorded ?Confirmed ?Last Taken ?Type docusate sodium 100 mg capsule 100 mg PO DAILY 12/11/19 08/04/25 08/02/25 History (Colace) levothyroxine 75 mcg capsule 75 mcg PO DAILY 12/11/19 08/04/25 08/05/25 History lisinopril 20 1 tab PO DAILY 12/11/19 08/04/25 08/04/25 History mg-hydrochlorothiazide 12.5 mg tablet lovastatin 40 mg tablet 40 mg PO DAILY 12/11/19 08/04/25 07/28/25 History gabapentin 100 mg capsule 100 mg PO DAILY 03/06/24 08/04/25 07/14/25 History hydrocodone 5 mg-acetaminophen 325 1 tab PO Q8H pain 5 days #15 tabs 06/06/25 08/04/25 2 Months Ago Rx mg tablet ~06/04/25 tirzepatide 5 mg/0.5 mL 5 mg SUBCUT DIRECTED 06/27/25 08/04/25 07/14/25 History subcutaneous pen injector (Mounjaro) Allergies Allergy/AdvReac Type Severity Reaction Status Date / Time cephalexin (From Keflex) Allergy Mild ALGY-Rash Verified 08/04/25 10:16 ciprofloxacin Allergy Mild ALGY-Rash Verified 08/04/25 10:16 Current Medications Generic Name Dose Route Start Last Admin Trade Name Kelsie PRN Reason Stop Dose Admin Sodium Chloride 1,000 mls @ 30 mls/hr 08/05/25 05:45 08/05/25 06:22 Sodium Chloride 0.9% IV 08/06/25 05:44 30 mls/hr .Q24H MICKEY Administration PFSH Anesthesia Medical History (Updated 06/28/25 @ 12:51 by JET Monique) Contusion of left knee and lower leg, initial encounter Osteoarthritis of right knee Bilateral primary osteoarthritis of knee Primary osteoarthritis of left knee Hypertension Hypothyroid Borderline hyperlipidemia Hypokalemia Dyspepsia Arthritis Family History Other Cancer Hyperlipidemia Hypertension Denies family history of Diabetes CAD (coronary artery disease) Clotting disorder Dementia Psychiatric illness Chronic kidney disease (CKD) Suicide Anesthesia complication Bleeding disorder Family history of premature coronary artery disease Lung disease Stroke Social History Smoking and tobacco/nicotine status: never used tobacco/nicotine Second hand smoke exposure: No Alcohol intake: never Substance/Drug Use: never Lives independently: Yes Household members: spouse Marital status: Data Anesthesia Cardiac Studies: Echocardiogram 03/27/23
--- NOTE | 2025-08-05 07:07 | W.PM.OPSFHP ---
Same Day Surgery H&P Indication for Procedure/HPI DATE OF PROCEDURE: August 05, 2025 CHIEF COMPLAINT/INDICATIONFOR SURGICAL PROCEDURE: Left knee pain osteoarthritis. Presenting for plan outpatient left total knee arthroplasty PREOP DIAGNOSIS: Left knee osteoarthritis. Varus deformity. PLANNED PROCEDURE: Operation Date: 08/05/25 07:00 Proposed Procedures p LEFT Frederic Robot Total Knee Arthroplasty(Left) - Rica Pike MD This is an established, 74-year-old female patient, who presented here today for planned left total knee arthroplasty. The patient has been seen in the orthopedic clinic for treatment of left knee osteoarthritis ongoing over the past 2 years, with conservative treatments being failed. Patient has tried and failed conservative treatments to include anti-inflammatory medications, knee bracing, formal and home physical therapy services, corticosteroid versus viscosupplementation injections, as well as activity modifications. Due to failed conservative interventions, the patient now has significant interference with her activities of daily living and has significant discomfort. While seen in the clinic, surgical options were discussed to include left total knee arthroplasty with Frederic guidance. Patient was in agreement with this and wishes to proceed. ROS Const: Denies: fever(s) or chills Card: Denies: chest pain or dyspnea on exertion Resp: Denies: dyspnea, productive cough or wheezing GI: Denies: abdominal pain, nausea or vomiting : Denies: difficulty voiding Musc: Reports: joint pain, joint swelling and limited range of motion Skin/Breast: Denies: changes in skin color or dry skin Neuro: Denies: numbness in extremities or weakness in extremities Psych: Denies: anxiety Onrbert/Lymph: Denies: easy bruising or easy bleeding Medications/Allergies* Home Medications ?Medication ?Instructions ?Recorded ?Confirmed ?Type docusate sodium 100 mg capsule 100 mg PO DAILY 12/11/19 08/04/25 History (Colace) levothyroxine 75 mcg capsule 75 mcg PO DAILY 12/11/19 08/04/25 History lisinopril 20 1 tab PO DAILY 12/11/19 08/04/25 History mg-hydrochlorothiazide 12.5 mg tablet lovastatin 40 mg tablet 40 mg PO DAILY 12/11/19 08/04/25 History gabapentin 100 mg capsule 100 mg PO DAILY 03/06/24 08/04/25 History tirzepatide 5 mg/0.5 mL 5 mg SUBCUT DIRECTED 06/27/25 08/04/25 History subcutaneous pen injector (Mounjaro) Allergies/Adverse Reactions Allergy/AdvReac Type Severity Reaction Status Date / Time cephalexin (From Keflex) Allergy Mild ALGY-Rash Verified 08/05/25 07:10 ciprofloxacin Allergy Mild ALGY-Rash Verified 08/05/25 07:10 Current Medications: Generic Name Dose Route Start Last Admin Trade Name Freq PRN Reason Stop Dose Admin Sodium Chloride 1,000 mls @ 30 mls/hr 08/05/25 05:45 08/05/25 06:22 Sodium Chloride 0.9% IV 08/06/25 05:44 30 mls/hr .Q24H MICKEY Administration Pertinent History/Comorbid Conditions* Medical History (Updated 06/28/25 @ 12:51 by JET Monique) Contusion of left knee and lower leg, initial encounter Osteoarthritis of right knee Bilateral primary osteoarthritis of knee Primary osteoarthritis of left knee Hypertension Hypothyroid Borderline hyperlipidemia Hypokalemia Dyspepsia Arthritis Family History (Updated 12/11/19 @ 10:32 by Olga Mejia LPN) Hyperlipidemia Cancer Hypertension Denies family history of Diabetes CAD (coronary artery disease) Clotting disorder Dementia Psychiatric illness Chronic kidney disease (CKD) Suicide Anesthesia complication Bleeding disorder Family history of premature coronary artery disease Lung disease Stroke Social History Smoking and tobacco/nicotine status: never used tobacco/nicotine Second hand smoke exposure: No Alcohol intake: never Substance/Drug Use: never Lives independently: Yes Household members: spouse Marital status: Pertinent Exam Findings alert, oriented x 3, clear to auscultation bilaterally, regular rate & rhythm, operative site marked and procedure specific exam findings (See narrative exam below) Const: COMMON NORMALS: patient oriented x3, no limitations, alert and well nourished NUTRITIONAL APPEARANCE: obese HENMT: COMMON NORMALS: normocephalic and atraumatic HEAD & SCALP: normocephalic and atraumatic Neck/C-Spine: COMMON NORMALS: full ROM, supple and no meningeal signs Resp: COMMON NORMALS: normal respiratory effort, No use of accessory muscles and clear to auscultation bilaterally AUSCULTATION: clear to auscultation bilaterally Cardio: COMMON NORMALS: regular rate and regular rhythm RATE: regular rate RHYTHM: regular rhythm Extremity: COMMON NORMALS: capillary refill normal and no clubbing, cyanosis or edema Left knee: Yes inspection (No skin breakdown. Moderate deep purple bruising anterior knee w/ swelling.), Yes palpation (effusion. TTP anterior knee, medial joint line and patellofemoral joint), Yes ROM (AROM Flex: 110, EXT: Lacking 5. Significant crepitation noted) and Yes neurovascular exam (Sensation intact to light touch. 2+ DP and PT pulses.) NOTED: 2+ pitting edema (this is normal for this patient). Neuro: COMMON NORMALS: patient oriented x3, moves all extremities, no focal motor deficits and no sensory deficits noted SENSORIUM/ORIENTATION: Yes alert MENINGEAL SIGNS: Yes no meningeal signs Skin: COMMON NORMALS: no rashes or lesions noted GENERAL SKIN EXAM: no rashes or lesions noted Pertinent Data Xrays obtained on 06/06/2025 in the ORTHOPEDIC clinic. X-ray series includes 3 views of the patient's left knee, with bilateral AP weightbearing, isolated lateral and sunrise of the left knee only. X-ray images demonstrate that there is severe degenerative change throughout the tricompartments of the knee, with near [id number]-[id number] articulation of the medial joint line. There is severe joint space degenerative change throughout the patellofemoral joint as well. There is noted osteophyte formation throughout the tricompartments of the knee. There is noted varus deformity bilaterally, with the left knee being most severe. No acute changes such as fracture or dislocations are noted. No foreign bodies. Overall findings are consistent with severe osteoarthritic degenerative change to the tricompartments of the left knee, with noted degenerative change to the right knee as well. X-ray images and my interpretation of these images were discussed with the patient the clinic. Related Problem List Diagnoses 1. Primary osteoarthritis of left knee: 2. 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
[2025-08-05] MEDS: tranexamic acid 1,000 mg/10mL SDV 1000 MG XX (07:10)
[2025-08-05] MEDS: ceFAZolin 2,000 mg SDV 2000 MG IVP ×3 (07:10→19:26)
[2025-08-05] MEDS: BUPivacaine 0.5% INJ 10 mL 20 ML INJECTION (07:53)
[2025-08-05] MEDS: BUPivacaine liposome 13.3 mg/mL SDV 20 mL 266 MG INFILTRATI (07:53)
[2025-08-05] MEDS: ceFAZolin 1,000 mg SDV 1000 MG IRRIGATION ×2 (08:02→08:05)
--- NOTE | 2025-08-05 10:26 | XRR_ITS ---
PROCEDURE INFORMATION: Exam: XR Left Knee Exam date and time: 08/05/2025 10:28 AM Age: 74 years old Clinical indication: Device placement; Joint replacement hardware; Prior surgery; Surgery date: Post-operative (0-2 days); Surgery type: Left total knee arthroplasty; Additional info: Status post left total knee arthroplasty TECHNIQUE: Imaging protocol: Radiologic exam of the left knee. Views: 1 or 2 views. COMPARISON: CT knee LT [facility] [id number] 06/24/2025 02:30 PM FINDINGS: Tubes, catheters and devices: Left knee prosthetic. Bones/joints: Normal alignment. No acute fracture. Soft tissues: Air in the soft tissues and joint space consistent with recent surgical intervention. XR/XR knee LT 1-2V [id number] IMPRESSION: Postop left knee prosthesis.
--- NOTE | 2025-08-05 10:29 | P.OP_ITS ---
Operative Report Date of procedure: August 05, 2025 Pre-op diagnosis: Primary osteoarthritis left knee with varus deformity Lymphedema Post-op diagnosis: Primary osteoarthritis left knee with varus deformity Lymphedema Post-op findings: Severe degenerative osteoarthritis with complete denudement of cartilage. Significant lymphedema Procedure done: Left total knee arthroplasty with Frederic guidance Implants: The Cushman total knee system with a size 3 triathlon beaded cruciate retaining femur left, a triathlon titanium tibial component size 3 beaded, a triathlon X3 tibial bearing CS insert size 3 x 13 mm and a beaded triathlon titanium asymmetric patella size 29 x 9 mm Specimens removed/disposition: Bone, disposed Pathology: None Surgeon: Rica Pike MD Columnist: Wendy Howe, nurse practitioner, whose services were required for positioning, exposure, placement of the prosthesis, retraction, and wound closure Anesthesia: General (Intubated, ASA 3) Estimated blood loss (mL): 430 Tourniquet time (min): 0 (Not utilized) IV fluids (mL): 1,300 Urine output (mL): 250 Complications: None Findings: Severe degenerative osteoarthritis with varus deformity and lymphedema Condition: stable Disposition: PACU (Then admit to floor under observation status for postoperative rehab and pain management) Brief History: This 74-year-old woman presented initially with bilateral knee pain. Injections were beneficial with the pain, but she began to have lessening effect to her left knee. Because conservative, nonoperative measures were losing their benefit, the patient wished to proceed with total knee arthroplasty. She was having significant limitations in her activities of daily living. Risks and complications of surgery were discussed with her. Consents were signed and questions were answered. Procedure: The patient was brought to the operating theater, and after undergoing general anesthesia, intubated, ASA 3, the left lower extremity was prepped with Dura- Prep and draped in usual fashion following placement of a tourniquet high on the leg. The leg was then draped free.? Tourniquet was not elevated throughout the surgical procedure. Prior to commencement of the procedure, a surgical pause was performed, and at the time of the surgical pause, we confirmed the site and side of surgery. Additionally, we confirmed the appropriate and timely administration of preoperative antibiotics, Ancef 2 g.?The availability of equipment was confirmed, and the patient's identity was verbalized as well. Frederic timeout was also performed. Patient has longstanding lymphedema, and this required a longer incision than normal. Following the surgical pause, an incision was made centering over the patella c ontinuing proximally and distally as necessary to allow access to the knee joint. Prior to incision, assessment was made of the patient's leg, and there was noted to be varus deformity. Dissection continued through skin and soft tissues using a scalpel. Hemostasis was obtained using electrocautery. The skin incision was followed by a median parapatellar arthrotomy. The leg was extended, and the patella was able to be displaced laterally.? Appropriate arrays and markers were placed in appropriate position for use of the Frederic.? Preoperative planning had been accomplished and was discussed in detail with the Frederic plastic products sales representative.? Intraoperative mapping of the femur and tibia was accomplished after the arrays were placed.? Internal markers were also placed.? Once we had accomplished the Frederic mapping, we began the appropriate resections for placement of the prosthesis.? The plan was for a cruciate retaining left total knee arthroplasty. Appropriate bone resection was accomplished using the Frederic.? Initially, we addressed the tibia, and this was followed by the femur. Osteophytes were removed prior to this portion of the procedure.? We had performed a medial release at the beginning of the procedure to allow for placement of the array.? Proximal tibia was evaluated, and it was felt that appropriate size for the tibia was a size 3.? The size 3 tray was noted to fit nicely with good coverage.? Rim fit was accomplished with the size 3. A trial reduction was accomplished after osteophytes had been removed as well as the medial and lateral menisci.? We had removed the anterior cruciate ligament at the beginning of the case and preserved the posterior cruciate ligament.? Trial reduction was accomplished with a size 3 femoral cruciate retaining component, a size 3 tibial tray and a size 3 CS tibial bearing insert which was 10 mm thickness. There appeared to be slight hyperextension, and we then performed a trial with a 12 mm thick insert with the same tray and femoral com ponents. With this insert, the knee was noted to be well-balanced, and plans were made for final 13 mm insert. Alignment was felt to be appropriate as well.? Trial components were removed after the femur had been drilled.? Prior to removal of the tibial tray which had been pinned in position with appropriate rotation as determined by the Frederic plan, we broached the tibia.? Subsequently, the 4 drill holes were made for the prosthetic component.? All trial components were removed, and the wound was irrigated.? Plans were made for insertion of the prosthetic components.? Prior to this, the patella was manually prepared.? After resection of the articular surface with the jogging system, it was measured and measured a 29 mm patella.? We resected approximately 6 mm of patella.? Patellar height was restored with the patellar component. Once again, the wound was irrigated. The Tritanium tibia was impacted into position.? The beaded femur was then impacted into position in a cementless fashion. The CS tibial insert was placed prior to placement of the femoral component. The patella was pressed into position with a patellar clamp.? Exparel was injected about the components deep and superficially.? The knee was then copiously irrigated with betadine and saline and suctioned dry. Attention was then directed to closure. Closure was accomplished with 0 Vicryl in the fascial tissues.? The suture line of 0 Vicryl was supplemented with strata fix, #1, with a running suture from proximal to distal and a second running stitch from distal to proximal.? This was followed by Surgiflo and vancomycin powder.? Following this, a 2-0 monocryl was used in the subcutaneous tissues, and the skin was closed with 3-0 Strata fix.? Care was taken to assure an excellent subcutaneous as well as skin closure.? A sterile dressing was then placed consisting of Dermabond Prineo, OpSite, ABD, sterile soft roll, and an Max wrap including over the foot. The patient was returned the Recovery Room in a satisfactory condition. X-rays were obtained and reviewed there.? The patient will be discharged to the floor for postoperative rehabilitation and pain management. Related Problem List Diagnoses 1. Primary osteoarthritis of left knee: 2. 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 Lymphedema: 4. Fluid retention in legs:
[2025-08-05] MEDS: fentaNYL 50 mcg/mL INJ 2mL IVP (10:45)
--- NOTE | 2025-08-05 11:10 | ANE.PACU2 ---
Inpatient post-anesthesia follow up: Airway intact: Yes Vital signs: Temperature 97.8 F Pulse Rate 65 Respiratory Rate 18 Blood Pressure 133/69 Pulse Oximetry 98 Oxygen Delivery Me thod Room Air Oxygen Flow Rate 6 Fraction of Inspir ed Oxygen Hydration adequate: Yes Nausea and vomiting: No Pain level: 1 Mental status: Baseline
[2025-08-05] MEDS: oxyCODONE 5 mg IR Tab/Cap PO ×2 (11:46→16:16)
[2025-08-05] MEDS: chlorhexidine gluconate 0.12% Btl 473 mL 30 ML MUCOUS MEM ×2 (13:07→22:59)
[2025-08-05] MEDS: sennosides-docusate Tablet 2 TAB PO (16:19)
[2025-08-06] VITALS (7 sets, daily range): BP systolic 76–125; BP diastolic 34–76; PULSE 57–74; RESP 16–17; TEMP 36.5–36.8; O2SAT 92–97
[2025-08-06] MEDS: ceFAZolin 2,000 mg SDV 2000 MG IVP (03:05)
[2025-08-06] MEDS: sennosides-docusate Tablet 2 TAB PO (04:56)
[2025-08-06] MEDS: multivitamin therapeutic Tablet 1 TAB PO (04:56)
[2025-08-06] MEDS: ATORVASTATIN 20 MG TABLET PO (04:56)
[2025-08-06] MEDS: mupirocin oint 22 gm 1 APPLIC NASAL (04:57)
[2025-08-06] MEDS: chlorhexidine gluconate 0.12% Btl 473 mL 30 ML MUCOUS MEM (04:57)
[2025-08-06 05:11] LABS: Hematocrit 29.0 % (36-47); Hemoglobin 9.30 g/dL (11.27-16.99); Mean Corpuscular HGB Conc 32.1 g/dL (30-55); Mean Corpuscular Hemoglobin 28.9 pg (27-33); Mean Corpuscular Volume 90.1 fl (85-98); Nucleated Red Blood Cells % 0 %; Platelet Count 262 10^3/cmm (157-399); Red Blood Count 3.22 10^6/uL (3.85-5.65); White Blood Count 11.43 10^3/uL (3.29-11.43)
--- NOTE | 2025-08-06 05:30 | PC.NURSE ---
Funez catheter removed per order. 200 mL yellow urine drained from collection bag prior to removal. Catheter removed fully intact without complications. Patient tolerated procedure well and denied any pain or discomfort. Education provided regarding the importance of monitoring the first void after removal and to report any discomfort, urgency, or inability to void. Pt verbalized understanding. Call light, belongings in reach, bed locked lowest position, SR up x2.
[2025-08-06 05:36] LABS: Anion Gap 16.3 (5-19); Blood Urea Nitrogen 24 mg/dL (8-23); Calcium 8.2 mg/dL (8.5-10.5); Carbon Dioxide 22 mmol/L (22-29); Chloride 102 mmol/L (98-107); Creatinine Clr Calc Pharmacy 39.4807; Glucose 104 mg/dL (65-115); Osmolality Calculated 288 mOsm/kg (285-295); Potassium 3.3 mmol/L (3.5-5.1); Sodium 137 mmol/L (136-145)
[2025-08-06] MEDS: oxyCODONE 5 mg IR Tab/Cap PO (05:50)
--- NOTE | 2025-08-06 07:01 | PC.NURSE ---
Woo VELOZ made aware that pt has not voided yet after blackwell removal.
[2025-08-06] MEDS: acetaminophen 1,000 MG/100 ML PIGGYBACK 400 MG IV (09:11)
--- NOTE | 2025-08-06 10:36 | PC.CHAP ---
Pastoral Care Encounter/Spiritual Assessment Type of Contact [] Declined professional architect visit [] Patient/Family/Request visit [] Outpatient visit [] Follow-up visit [] Physician referral [] Code/Alert [x] Routine visit [] Staff referral [] Actively dying [] Patient sleeping [] Family support [] [] Out of room [] Palliative care [] [] Receiving care in room [] Pre-surgical visit [] Trauma [] Long length of stay [] ICU visit [] Other: Relational/Emotional Strength [x] Patient feels connected with others/family/visitors/staff [] Distress [] Loneliness/isolation [] Abandonment Spirituality of Patient [x] Person of Nery [] Attends Sikhism of their Nery [] Believes in Prayer [] Reads Bible or Uatsdin materials [] There are Spiritual issues to be addressed Laundry Room Attendant Interventions x Prayer [x] Active listening [x] Non-anxious presence [x] Spiritual/emotional support [] Crisis/trauma care [] Spiritual counseling [] Bereavement support [] Provided bereavement packet [] Provided Bible/devotional materials [] Provided toy/stuffed animal, coloring book to patient or family member [] Provided Communion [] Anointing/[place] [] Salvation [x] Completed spiritual assessment [] Other: Impact on Illness or Injury [] Angry [] Fearful [] Anxious [] Often cries [] Exhaustion [] Unable to work [] Unable to attend yarsanism [] Unable to walk/stand [] Unable to read [] Unable to drive [] Unable to eat/drink [] Unable to sleep [] Unable to be with family [] Patient intubated [] Other: Summary Time spent with patient 5 min
--- NOTE | 2025-08-06 13:50 | P.DS_ITS ---
Discharge Providers Date of Admission: 08/05/25 11:01 Date of Discharge: August 06, 2025 Attending Provider at Admission: Rica Pike MD Attending Provider at Discharge: Rica Pike MD Primary Care Provider: Kaleigh Trevino Diagnoses at Discharge Discharge Diagnosis 1. Primary osteoarthritis of left knee: 2. 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 Lymphedema: 4. Fluid retention in legs: 5. Status post total left knee replacement not using cement: Reason for Visit Reason for Visit: M17.12 Brief History: This 74-year-old woman presented initially with bilateral knee pain. Injections were beneficial with the pain, but she began to have lessening effect to her left knee. Because conservative, nonoperative measures were losing their benefit, the patient wished to proceed with total knee arthroplasty. She was having significant limitations in her activities of daily living. Risks and complications of surgery were discussed with her. Consents were signed and questions were answered. Hospital Course Hospital Course This 74-year-old woman underwent same-day surgery for left total knee arthroplasty with Frederic guidance. She has a complicated recovery secondary to severe lymphedema. She tolerated the surgical procedure well. She was able to work with physical therapy the day following surgery and she did well with this. On the first postoperative day, she had no evidence of DVT. Her pain ma nagement was good. Plans were made for her discharge to home to follow-up as scheduled. Physical Exam Const: COMMON NORMALS: no acute distress, average body habitus, patient oriented x3 and alert GENERAL APPEARANCE: cooperative and comfortable ORIENTATION/CONSCIOUSNESS: Yes awake OTHER: Severe lymphedema with leg swelling is present HENMT: COMMON NORMALS: normocephalic and atraumatic HEAD & SCALP: normocephalic and atraumatic Eye: GENERAL EYE: appearance normal, both eyes and all related structures Chest: COMMONS NORMALS: normal inspection of the chest Resp: COMMON NORMALS: normal respiratory effort EFFORT & INSPECTION: Yes able to speak in complete sentences and Yes symmetric chest movement Extremity: LEFT LOWER EXTREMITY: Yes knee joint (There is significant lymphedema present both lower extremities, symmetric) Left knee: Yes inspection (No obvious increased swelling), Yes palpation (No significant tenderness), Yes ROM (Not evaluated) and Yes neurovascular exam (Motor function intact distally. No evidence of DVT) Neuro: COMMON NORMALS: patient oriented x3 SENSORIUM/ORIENTATION: Yes alert Psych: COMMON NORMALS: mental status grossly normal APPEARANCE: Yes grossly normal ATTITUDE: Yes calm and Yes engaged ATTENTION/CONCENTRATION: Yes attention grossly intact Skin: COMMON NORMALS: no rashes or lesions noted GENERAL SKIN EXAM: no rashes or lesions noted Urinary Catheter Management: Funez: Cath Placed During This Visit: yes, but has since been removed by the nurse Reason for Continuing Indwelling Catheter: Perioperative Use in Selected Surgeries Urinary Catheter Date of Insertion: 08/05/25 Urinary Catheter Time of Insertion: 07:20 Date Urinary Catheter Removed: 08/06/25 Time Urinary Catheter Discontinued: 05:28 Discharge Data Studies Completed and Pending Completed Studies During Hospitalization Category Date Time Status XR knee LT 1-2V [id number] Urgent Exams 08/05/25 10:26 Completed Radiology Impressions Knee X-Ray 08/05/25 10:26 IMPRESSION: Postop left knee prosthesis. Laboratory Results WBC 11.43 10^3/uL (3.29-11.43) 08/06/25 04:33 RBC 3.22 10^6/uL (3.85-5.65) L 08/06/25 04:33 Hgb 9.30 g/dL (11.27-16.99) L 08/06/25 04:33 Hct 29.0 % (36-47) L 08/06/25 04:33 MCV 90.1 fl (85-98) 08/06/25 04:33 MCH 28.9 pg (27-33) 08/06/25 04:33 MCHC 32.1 g/dL (30-55) 08/06/25 04:33 RDW 13.4 % (12.1-15.1) 08/06/25 04:33 Plt Count 262 10^3/cmm (157-399) 08/06/25 04:33 MPV 10.3 fL (7.4-10.4) 08/06/25 04:33 Neut % (Auto) 71.8 % 08/06/25 04:33 Lymph % (Auto) 19.7 % 08/06/25 04:33 Hubbard % (Auto) 7.5 % 08/06/25 04:33 Eos % (Auto) 0.1 % 08/06/25 04:33 Baso % (Auto) 0.6 % 08/06/25 04:33 Neut # (Auto) 8.21 10^3/uL (1.8-7.7) H 08/06/25 04:33 Lymph # (Auto) 2.3 10^3/uL (0.8-4.8) 08/06/25 04:33 Hubbard # (Auto) 0.9 10^3/uL (0.2-0.9) 08/06/25 04:33 Eos # (Auto) 0.0 10^3/uL (0.0-0.8) 08/06/25 04:33 Baso # (Auto) 0.1 10^3/uL (0.0-0.1) 08/06/25 04:33 Nucleated RBC % (auto) 0 % 08/06/25 04:33 Nucleated RBCs # 0.0 /100WBC 08/06/25 04:33 Sodium 137 mmol/L (136-145) 08/06/25 04:33 Potassium 3.3 mmol/L (3.5-5.1) L 08/06/25 04:33 Chloride 102 mmol/L (98-107) 08/06/25 04:33 Carbon Dioxide 22 mmol/L (22-29) 08/06/25 04:33 Anion Gap 16.3 (5-19) 08/06/25 04:33 BUN 24 mg/dL (8-23) H 08/06/25 04:33 Creatinine 1.2 mg/dL (0.5-0.9) H 08/06/25 04:33 GFR Calculation Not Reportable 08/06/25 04:33 Glucose 104 mg/dL (65-115) 08/06/25 04:33 Calculated Osmolality 288 mOsm/kg (285-295) 08/06/25 04:33 Calcium 8.2 mg/dL (8.5-10.5) L 08/06/25 04:33 Vitals Last Vital Signs Temp 97.7 F 08/06/25 11:29 Pulse 57 L 08/06/25 11:29 Resp 16 08/06/25 11:29 BP 76/34 08/06/25 11:29 Pulse Ox 92 08/06/25 11:29 O2 Del Method Room Air 08/06/25 11:29 O2 Flow Rate 6 08/05/25 10:48 Discharge Plan Discharge Patient Disposition: Home Health Service Condition: Stable Prescriptions: New acetaminophen 500 mg Tablet 1,000 mg PO Q8H 15 Days Qty: 90 0RF aspirin 325 mg Tablet,Delayed Release (Dr/Ec) 325 mg PO DAILY 30 Days Qty: 30 0RF celecoxib 200 mg Capsule 200 mg PO 1XD 30 Days Qty: 30 0RF oxycodone 5 mg Tablet 5 - 10 mg PO Q4H PRN (Reason: Moderate To Severe Pain) 7 Days Qty: 40 0RF Continued lisinopril-hydrochlorothiazide 20-12.5 mg tablet 1 tab PO DAILY levothyroxine 75 mcg capsule 75 mcg PO DAILY lovastatin 40 mg tablet 40 mg PO DAILY docusate sodium [Colace] 100 mg capsule 100 mg PO DAILY gabapentin 100 mg capsule 100 mg PO DAILY Mounjaro 5 mg/0.5 mL pen injector 5 mg SUBCUT DIRECTED Rx Instructions: every 7 days hydrocodone-acetaminophen 5-325 mg tablet 1 tab PO Q8H 5 Days Qty: 15 0RF Discharge Order = DC NOW: Discharge Order (Routine); Ordered 08/06/25 Ordered By: Rica Pike Other Ambulatory Orders: DME: Walker (Order) Location: None Selected Ordered By: Riac Pike Referrals: [facility] [place]] Referral Note: This is the company providing your walker. Your insurance will only pay for a walker once very 5 years so once you are done using the walker please put in safe keeping in the event you may need it again in the future. [facility] [Outside] Rica Pike MD [Physician, Orthopedics] - 08/18/25 3:45 pm Discharge Diet: Advance as tolerated and Usual diet Discharge Activity: Resume usual activity, Increase activity as tolerated, Limit activity as instructed, Use walker/crutches as instructed and As per PT/OT instructions Patient Instructions: Oxycodone, Rapid Release (By mouth), Celecoxib (By mouth), Acute Wound Care (DC), Total Knee Replacement (GEN), Opioid Safety, Post Anesthesia Care, Patient Portal & Doug Instructions Activity Restrictions/Additional Instructions: Weightbearing as tolerated. You may shower, but do not soak your knee in water. Maintain the clear plastic dressing in place until it comes off on its own. Physical therapy for gait training, ambulation, and range of motion. 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
== END 2025-08-06 14:21 | disposition home health service (06) ==
LOC: MEDSURG 11:01
PROVIDERS: Admitting Provider Specialist; PCP Nurse Practitioner Family; Visit Provider Specialist
PROC: 8E0Y0CZ Robotic Assisted Procedure of Lower Extremity, Open Approach (ICD-10-PCS; CPT 27447; principal; 2025-08-05 07:00)
DX: M17.12 Unilateral primary osteoarthritis, left knee (principal); M21.162 Varus deformity, not elsewhere classified, left knee; I89.0 Lymphedema, not elsewhere classified; I10 Essential (primary) hypertension; E78.5 Hyperlipidemia, unspecified; E07.9 Disorder of thyroid, unspecified; Z79.891 Long term (current) use of opiate analgesic; R60.0 Localized edema
CPT/HCPCS: 27447; 20985; 36415; 51702; 73560; 80048; 85025; 97110; 97116; 97161; 97165; 97530; A4216; C1776; G0378; J0131; J0360; J0666; J0690; J1100; J1171; J1885; J2371; J2405; J2704; J3010; J3373; J3490; J7030; J7040; J9999

== ENCOUNTER → 2025-08-18 14:43 | Outpatient (BNVA) | payer MEDICARE, SELFPAY | PROVIDERS: PCP Nurse Practitioner Family; Visit Provider Specialist | DX: Z98.890 Other specified postprocedural states (principal); Z96.652 Presence of left artificial knee joint | CPT/HCPCS: 73560; 73565; 99024 ==

== ENCOUNTER 2025-08-23 05:00 | Outpatient (RCR) | payer MEDICARE, SELFPAY | END 2025-09-21 23:59 | disposition home or self-care (01) | LOC: WPT 05:00 | PROVIDERS: PCP Nurse Practitioner Family; Visit Provider Nurse Practitioner | DX: Z47.1 Aftercare following joint replacement surgery (principal); Z96.652 Presence of left artificial knee joint | CPT/HCPCS: 97161 ==

== ENCOUNTER → 2025-09-08 08:47 | Outpatient (BNVA) | payer MEDICARE, SELFPAY | PROVIDERS: PCP Nurse Practitioner Family; Visit Provider Nurse Practitioner | DX: Z98.890 Other specified postprocedural states (principal); Z96.652 Presence of left artificial knee joint | CPT/HCPCS: 73560; 73565; 99024 ==

== ENCOUNTER 2025-10-20 13:58 | Outpatient (RCR) | payer MEDICARE, SELFPAY | END 2025-10-22 23:59 | disposition home or self-care (01) | LOC: WPT 13:58 | PROVIDERS: PCP Nurse Practitioner Family; Visit Provider Nurse Practitioner | DX: Z47.1 Aftercare following joint replacement surgery (principal); Z96.652 Presence of left artificial knee joint | CPT/HCPCS: 97110; 97112; 97530 ==